=== PATIENT | female | born 1945 | race Caucasian/White ===

== ENCOUNTER 2016-12-03 11:03 | Day surgery (SDC) | payer MEDICARE ==
[2016-12-02 13:20] VITALS: BMI 24.0
--- OUTSIDE RECORDS SUMMARY | 2016-12-03 11:05 | XMS | Clinical Summary ---
:1945 Author Organization [facility] Address [address] [place] [address] Phone Care Team Providers Name Role Phone , Primary Care Provider Unavailable Allergies Not on File Current Medications Not on file Active Problems Not on file Social History Tobacco Use Types Packs/Day Years Used Date Never Assessed Sex Assigned at Date Recorded Not on file Last Filed Vital Signs Not on file Plan of Treatment Not on file Results Not on filefrom Last 3 Months
[2016-12-03] MEDS ORDERED: Glycopyrrolate 0.2 MG/ML 5 ML SYRINGE ONE (13:36)
[2016-12-03] MEDS ORDERED: Propofol 200 MG/20 ML VIAL ONE (13:36)
[2016-12-03] MEDS ORDERED: Lidocaine 1% PF 5 ML VIAL ONE (13:36)
--- NOTE | 2016-12-03 18:35 | OP ---
DATE OF SERVICE: 12/03/2016 SURGEON: Sabino Sol M.D. [employer] SURGEON: None. PROCEDURE: 1. EGD with polypectomy. 2. Colonoscopy with polypectomy and ablation of polyp. INDICATIONS: 1. Chronic gastroesophageal reflux disease. 2. History of gastric lymphoma. 3. History of colon polyp. MEDICATIONS: See anesthesia record. FINDINGS: After discussion of the risks, benefits and alternatives of the procedure, informed conse nt was obtained and witnessed. Pre-endoscopic cardiopulmonary examination was satisfactory. Timeou t was performed before sedation was achieved. Sedation was achieved with anesthesia assistance in [facility] endoscopy unit. A Pentax adult upper endoscope was placed into the oropharynx and passed through the cricopharyngeus under direct visualization. The esophageal mucosa appeared normal throughout w ith a normal-appearing Z-line. The endoscope was advanced into the stomach. Forward and retroflexe d views of the entire gastric mucosa were obtained. There was a small sliding hiatal hernia. Gastr ic mucosa otherwise appears completely normal. The endoscope was passed through the normal pylorus and into the first and second portions of the duodenum. In the duodenal bulb, inferiorly, there was a small polyp measuring only about 2 mm in diameter. This likely represents Nancie gland hyperpla martin, but the polyp was completely removed with hot snare and retrieved for pathology to rule out shaq nomatous tissue. The remainder of the duodenal mucosa appeared normal. The upper endoscope was the n completely withdrawn and the patient was repositioned. Digital rectal exam was performed, which was unremarkable. A Pentax adult colonoscope was inserted into the anus and passed forward to the cecum in the usual fashion. The cecal base was identified b y the appendiceal orifice as well as the ileocecal valve. The terminal ileum was not intubated. Th e colonoscope was then slowly withdrawn in a gradual and circumferential manner with careful examina tion of the entire colonic mucosa. The quality of the prep was good. There was some minor barotrau ma in the right colon visualized during the procedure, but no significant bleeding. In the cecum, t here were 2 small polyps, one of these measured 4-5 mm and was completely removed with hot snare and retrieved for pathology. The other was flat and measured only about 1 mm. This was completely abl ated with hot snare tip. The remainder of the colon appeared normal. There were a few tiny diverti cula in the sigmoid colon. Retroflexion in the rectum was otherwise normal. The colonoscope was th en completely withdrawn and the patient allowed to recover. The patient tolerated the procedure wel l. There were no immediate post-procedure complications. IMPRESSION: 1. Small hiatal hernia. 2. 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 3. Otherwise, normal esophagogastroduodenoscopy. 4. A 5 mm cecal polyp, completely removed with hot snare and retrieved for pathology. 5. A 1 mm cecal polyp, ablated. 6. Few sigmoid diverticula. 7. Otherwise, normal colonoscopy to the cecum. RECOMMENDATIONS: 1. Continue daily PPI. 2. Follow up pathology. 3. Repeat colonoscopy for surveillance in 5 years. 4. Return to the GI clinic as needed.
== END 2016-12-03 15:00 | disposition home or self-care (01) ==
LOC: SDC 11:03
PROVIDERS: ATTEND Internal Medicine
PROC: 0DBH8ZX Excision of Cecum, Via Natural or Artificial Opening Endoscopic, Diagnostic (ICD-10-PCS; principal; 2016-12-03)
PROC: 0DB98ZX Excision of Duodenum, Via Natural or Artificial Opening Endoscopic, Diagnostic (ICD-10-PCS; 2016-12-03)
DX: Z12.11 Encounter for screening for malignant neoplasm of colon (principal); K31.7 Polyp of stomach and duodenum; D12.0 Benign neoplasm of cecum; K21.9 Gastro-esophageal reflux disease without esophagitis; I48.91 Unspecified atrial fibrillation; I10 Essential (primary) hypertension; K44.9 Diaphragmatic hernia without obstruction or gangrene; K57.30 Diverticulosis of large intestine without perforation or abscess without bleeding; J44.9 Chronic obstructive pulmonary disease, unspecified; Z79.82 Long term (current) use of aspirin; Z79.899 Other long term (current) drug therapy; Z88.5 Allergy status to narcotic agent; Z91.048 Other nonmedicinal substance allergy status; Z96.1 Presence of intraocular lens; Z85.028 Personal history of other malignant neoplasm of stomach; Z85.118 Personal history of other malignant neoplasm of bronchus and lung; Z85.43 Personal history of malignant neoplasm of ovary; Z92.3 Personal history of irradiation; Z92.21 Personal history of antineoplastic chemotherapy; Z87.891 Personal history of nicotine dependence
CPT/HCPCS: 88305; J2001; J2704

== ENCOUNTER 2017-02-09 20:30 | Outpatient (CLI) | payer MEDICARE | END 2017-02-09 20:31 | disposition home or self-care (01) | LOC: SLEEPLAB 20:30 | PROVIDERS: ATTEND Internal Medicine | DX: G47.33 Obstructive sleep apnea (adult) (pediatric) (principal); R53.83 Other fatigue; R51 Headache; K21.9 Gastro-esophageal reflux disease without esophagitis; I11.9 Hypertensive heart disease without heart failure; R06.83 Snoring; G47.10 Hypersomnia, unspecified; R09.89 Other specified symptoms and signs involving the circulatory and respiratory systems | CPT/HCPCS: 95810 ==

== ENCOUNTER 2017-04-02 14:29 | Emergency (ER) | payer OTHER, MEDICARE ==
[2017-04-02 14:46] LABS: #Basophils 0.1 thou/uL (0.0-0.2); #Eosinphils 0.3 thou/uL (0.0-0.7); #Monocytes 1.1 thou/uL (0.11-0.59); #Neutrophils 6.9 thou/uL (1.40-6.50); %Eosinophils 2.7 % (0.0-10.0); %Lymphocytes 26.6 % (21.0-51.0); %Monocytes 9.4 % (0.0-10.0); %Neutrophils 60.4 % (42.0-75.0); Hemoglobin 15.1 g/dL (12.0-16.0); Mean Corpuscular HGB CONC 33.2 g/dL (32.0-36.0); Mean Corpuscular Hemoglobin 31.9 pg (27.0-31.0); Mean Corpuscular Volume 95.9 fl (81.0-99.0); Mean Platelet Volume 7.5 fL (7.4-10.4); Platelet Count 308 thou/uL (130-400); RBC Distribution Width 12.8 % (11.5-14.5); Red Blood Cell (RBC) Count 4.73 mill/uL (4.20-5.40); White Blood Cell (WBC) Count 11.4 thou/uL (4.8-10.8)
[2017-04-02] MEDS ORDERED: methylPREDNISolone Sod Succ/PF 125 MG/2 ML VIAL ONE (14:56)
[2017-04-02] MEDS ORDERED: Albuterol Sulfate 2.5 mg/0.5 ml Neb ONE (14:59)
[2017-04-02] MEDS ORDERED: Albuterol Sulfate 2.5 mg/3 ml Neb ONE (15:00)
[2017-04-02 15:06] LABS: ALT (SGPT) 13 U/L (8-55); AST (SGOT) 15 U/L (5-34); Albumin 3.9 g/dL (3.4-4.8); Alkaline Phosphatase 109 U/L (40-150); Anion Gap 16 mmol/L (10-20); BUN (Urea Nitrogen) 40 mg/dL (9.8-20.1); Bilirubin, Total 0.4 mg/dL (0.2-1.2); Calc. Creatinine Clearance 0 mL/min (70-130); Calcium 9.4 mg/dL (7.8-10.44); Carbon Dioxide 24 mmol/L (23-31); Chloride 101 mmol/L (98-107); Estimated GFR-MDRD 38; Globulin 3.1 g/dL (2.4-3.5); Glucose 103 mg/dL (83-110); Sodium 136 mmol/L (136-145)
[2017-04-02 15:11] LABS: Actual Bicarbonate (HCO3a) 26.4 mEq/L (22-26); Analyzer IN Cardio ER; Base Excess (BEa) 1.9 mEq/L (0 (+/-) 2.5); CO2 Tension 40.8 mmHg (35.0-45.0); Calcium, Ionized 1.2 mmol/L (1.12-1.30); Hematocrit-ABG 45.2 % (36.0-47.0); Hemoglobin (Hb) 14.3 g/dL (12.0-16.0); O2 Tension (PaO2) 92.8 mmHg (80.0-100.0); Puncture Site RRA; pH, Arterial 7.43 (7.35-7.45)
[2017-04-02 15:29] LABS: CKMB 1.2 ng/mL (0-6.6); Troponin I 0.015 ng/mL (< 0.028)
--- NOTE | 2017-04-02 15:36 | RAD ---
CHEST ONE VIEW 04/02/17 HISTORY: Dyspnea. COMPARISON: Chest one view 03/29/17 FINDINGS: Volume loss left lung. There is a layering left effusion. Extensive lingular and left lower lobe air space opacities present. Right lung relatively clear. There is a nodular density in right lung apex. IMPRESSION: 1. Volume loss left lung with small effusion and left basilar airspace opacity concerning for in fection. 2. Nodular density right lung apex. Followup CT of chest with contrast recommended. Code T Code LN POS: MARLI
[2017-04-02] MEDS ORDERED: Furosemide 40 MG/4 ML VIAL ONE (19:36)
== END 2017-04-02 21:35 | disposition home or self-care (01) ==
LOC: ERS 14:29
DX: J44.0 Chronic obstructive pulmonary disease with (acute) lower respiratory infection (principal); J18.9 Pneumonia, unspecified organism; J44.1 Chronic obstructive pulmonary disease with (acute) exacerbation; I11.0 Hypertensive heart disease with heart failure; I50.9 Heart failure, unspecified; I25.10 Atherosclerotic heart disease of native coronary artery without angina pectoris; I48.91 Unspecified atrial fibrillation; Z85.43 Personal history of malignant neoplasm of ovary; Z79.01 Long term (current) use of anticoagulants; Z79.82 Long term (current) use of aspirin; Z79.899 Other long term (current) drug therapy
CPT/HCPCS: 36415; 71045; 80053; 82553; 82805; 83880; 84484; 85025; 87040; 87070; 87205; 93005; 96374; 96375; J0696; J1940; J2930; J7611

== ENCOUNTER 2017-04-10 11:26 | Inpatient (IN) | payer MEDICARE, OTHER ==
[2017-04-10 12:58] LABS: ALT (SGPT) 15 U/L (8-55); AST (SGOT) 14 U/L (5-34); Albumin 3.9 g/dL (3.4-4.8); Alkaline Phosphatase 96 U/L (40-150); Anion Gap 13 mmol/L (10-20); BUN (Urea Nitrogen) 37 mg/dL (9.8-20.1); Bilirubin, Total 0.7 mg/dL (0.2-1.2); CK (CPK) 40 U/L (29-168); Calc. Creatinine Clearance 0 mL/min (70-130); Calcium 9.5 mg/dL (7.8-10.44); Carbon Dioxide 29 mmol/L (23-31); Chloride 101 mmol/L (98-107); Estimated GFR-MDRD 45; Globulin 2.6 g/dL (2.4-3.5); Glucose 107 mg/dL (83-110); Hemoglobin 14.8 g/dL (12.0-16.0); Lymphocytes 26 % (21-51); MDiff Complete? YES; Mean Corpuscular HGB CONC 33.3 g/dL (32.0-36.0); Mean Corpuscular Hemoglobin 31.7 pg (27.0-31.0); Mean Corpuscular Volume 95.4 fl (81.0-99.0); Mean Platelet Volume 7.2 fL (7.4-10.4); Metamyelocyte 1 % (0-0); Neutrophil 73 % (42-75); PLT Morphology Comment Appears Adequate; Platelet Count 327 thou/uL (130-400); Protein, Total 6.5 g/dL (6.0-8.3); RBC Morphology Normal; Red Blood Cell (RBC) Count 4.67 mill/uL (4.20-5.40); Sodium 139 mmol/L (136-145); White Blood Cell (WBC) Count 23.1 thou/uL (4.8-10.8)
[2017-04-10 13:02] LABS: CKMB 1.7 ng/mL (0-6.6); Troponin I Less than 0.010 ng/mL (< 0.028)
[2017-04-10] MEDS ORDERED: HYDROcodone/Acetaminophen 5/325 mg Tablet PO PRN ×2 (13:10→15:45)
[2017-04-10] MEDS ORDERED: Ondansetron ODT 4 MG TAB PO PRN (13:10)
[2017-04-10] MEDS ORDERED: Piperacillin/Tazobactam 4.5 GM in Sodium Chloride 0.9% 100 ML IVPB SCH (14:00)
[2017-04-10 14:01] LABS: Bilirubin Negative (Negative); Blood, Urine Negative (Negative); Clarity CLEAR (Clear); Glucose, Urine (Dipstick) Negative (Negative); Leukocyte Negative (Negative); Nitrite Negative (Negative); Protein, Urine (Dipstick) Negative (Neg-Trace); Specific Gravity, Urine 1.012 (1.002-1.036); Urobilinogen 0.2 mg/dL (0.2-1.0)
--- NOTE | 2017-04-10 14:05 | RAD ---
PORTABLE AP CHEST: Date: 04/10/17 HISTORY: Dyspnea. Patient has had flu and pneumonia. Shortness of breath. COMPARISON: 04/02/17. FINDINGS: There is generalized volume loss of the left hemithorax with shift of the mediastinal structures to t he left, similar to the prior exam. Left pleural effusion is also again seen. There is increased inte rstitial and patchy parenchymal opacities again seen at the left lung base, similar to the prior stud y. The right lung remains clear. Cardiac silhouette is obscured. Postsurgical changes left hilar camryn on are again noted. There is mild elevation of the left hemidiaphragm. No abnormal change. IMPRESSION: 1. Generalized volume loss left hemithorax with interstitial and patchy air space opacity at the lef t lung base which could be related to pneumonia, but follow-up to complete resolution is recommended. 2. Left pleural effusion. 3. Nodular density overlying the right lung apex is less well visualized on this exam. However, the minimal increased density overlies the anterior right second rib and is stable when compared to the p rior study as well as a study on 09/02/16. This could represent sclerotic lesion within a rib, but th is is difficult to further evaluate on this exam. POS: INDIRA
[2017-04-10] MEDS ORDERED: Albuterol Sulfate 2.5 mg/3 ml Neb NEB PRN (14:22)
[2017-04-10] MEDS ORDERED: Vancomycin HCl 1.25 GM in Sodium Chloride 0.9% 250 ML 250 ML IVPB SCH (14:30)
[2017-04-10] MEDS ORDERED: VANCOMYCIN/ZOSYN IVPB PRN (14:40)
[2017-04-10] MEDS ORDERED: Heparin 5,000 UNITS/ML VIAL SC SCH (15:00)
[2017-04-10] MEDS ORDERED: Ondansetron HCl/PF 4 MG/2 ML Vial IVP PRN ×2 (15:05→16:52)
[2017-04-10] MEDS ORDERED: Ondansetron ODT 4 MG TAB SL PRN (15:05)
[2017-04-10 15:14] VITALS: BMI 25.8
[2017-04-10] MEDS ORDERED: Sodium Chloride 0.9% 1,000 ML IV SCH (15:15)
[2017-04-10] MEDS ORDERED: Dextrose 5% in Water 1,000 ML IV PRN (16:50)
[2017-04-10] MEDS ORDERED: Dextrose 50% Abboject 50 ML SYRINGE SLOW IVP PRN (16:50)
[2017-04-10] MEDS ORDERED: HumaLOG 300 UNITS/3 ML VIAL SC PRN (16:50)
[2017-04-10] MEDS: Acetaminophen 325 MG TAB PO PRN ×2 (16:58→21:04)
[2017-04-10] MEDS: Sodium Chloride 0.9% 1,000 ML IV SCH (17:39)
[2017-04-10] MEDS: Vancomycin HCl 750 MG in Sodium Chloride 0.9% 250 ML 250 ML IVPB SCH (17:40)
--- NOTE | 2017-04-10 19:41 | HP ---
PRIMARY CARE PHYSICIAN: Dr. Jonathon Marquez. CHIEF COMPLAINT: Shortness of breath. HISTORY OF PRESENT ILLNESS: Ms. Luisa Gregg is a 71-year-old female with a past medical history of hypertension, bradycardia, COPD, and type 2 diabetes mellitus who presented to the emergency room with a 10-day history of fever, shortness of breath, cough productive of clear sputum, nausea, vomiting, lightheadedness, generalized malaise and fever and chills. She was seen by a PCP, who diagnosed her with left lobe pneumonia and started her on Levaquin and steroids. She took her medication for a week, but did not get any better. Due to her worsening symptoms, she presented to the emergency room. She denies chest pain, palpitations, PND, orthopnea, or lower extremity edema. She does not have any dysuria, urgency, hematuria, or any urinary symptoms. 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 PAST SURGICAL HISTORY: Ovarian rupture surgery, tonsillectomy, lobectomy of the lung. FAMILY HISTORY: Reviewed and not pertinent. SOCIAL HISTORY: She is a former smoker (quit in 1994). She does not drink alcohol or use illicit drugs. ALLERGIES: ADHESIVES and CODEINE. REVIEW OF SYSTEMS: Fever, chills, fatigue, weakness. HEENT: Negative. Neck: Negative. Respiratory: Per HPI. Cardiovascular: Negative. GI: Positive for nausea and vomiting, otherwise negative. : Occasional dysuria, frequency. Musculoskeletal: Negative. Skin: Denies rashes or skin changes. Neurologic: Negative. Hematology: Negative. Allergy/immunology: Negative. Psychiatric: Denies depressed mood, suicidal, or homicidal ideations. PHYSICAL EXAMINATION: CONSTITUTIONAL: Lethargic, lying in bed in moderate distress. HEENT: Normocephalic, atraumatic. EOMI, PERRLA. Dry mucous membranes. NECK: Supple, full range of movement. RESPIRATORY: Diminished breath sounds bilaterally with minimal wheezing. CARDIOVASCULAR: Regular rate and rhythm. S1, S2 only. No focal deficits. ABDOMEN: Nontender, nondistended. Bowel sounds positive. No organomegaly. MUSCULOSKELETAL: Moving all extremities spontaneously. SKIN: Warm, dry, well perfused. NEUROLOGIC: Alert and well oriented. No focal deficits. PSYCHIATRIC: Normal mood and affect. LABORATORY DATA: Chemistry significant for elevated BUN and creatinine 37 and 1.19. Lactic acid 1.3. Troponin less than 0.01. BNP 219. Hematology: WBC 23.1 (likely steroid induced), hemoglobin 14, platelets 327. Urine unremarkable. IMAGING: Chest x-ray showed generalized volume loss of the left hemithorax with interstitial patchy, airspace opacity at the left lung base, which could be related to pneumonia, left pleural effusion, nodular density overlying the right lung apex is less visualized in this exam; however, minimal increased density overlying the anterior right second rib and is stable when compared to prior study as well as study on 09/02/2016. ASSESSMENT/PLAN: 1. Left lower lobe pneumonia. Patient with saline of outpatient tests. She has been started on broad spectrum antibiotics here. Blood cultures have been obtained and will be followed up. Influenzae A and type B antigens were negative. She will also be gently hydrated, given bronchodilator therapy and oxygen supplementation. 2. Chronic obstructive pulmonary disease: as above. 3. Hypertension. Patient's blood pressure is controlled. We will monitor and gradually reintroduce home medications. 4. FLOR: pre-renal. 2/2 poor PO intake. Will hydrate and monitor. If not improving, will obtain retroperitoneal US to r/o obstructive uropathy. 5. Hypothyroidism: Continuie levothyroxine. MTDD
[2017-04-10] MEDS ORDERED: Piperacillin/Tazobactam 3.375 GM in Sodium Chloride 0.9% 100 ML IVPB SCH (20:00)
[2017-04-10] MEDS: Apixaban 5 MG TAB PO SCH (20:50)
[2017-04-10] MEDS: guaiFENesin ER 600 MG TAB PO SCH (20:51)
[2017-04-10] MEDS: Magnesium Oxide 250 MG TAB PO SCH (20:51)
[2017-04-10] MEDS: Metoprolol Tartrate 50 MG TAB PO SCH (20:52)
[2017-04-10] MEDS ORDERED: Famotidine 20 MG TAB PO SCH (21:00)
[2017-04-10] MEDS ORDERED: Lisinopril 10 MG TAB PO SCH (21:00)
[2017-04-10] MEDS ORDERED: Carvedilol 6.25 MG TAB PO SCH ×2 (21:00)
[2017-04-10] MEDS: Piperacillin/Tazobactam 3.375 GM in Sodium Chloride 0.9% 100 ML IVPB SCH (21:59)
[2017-04-11] MEDS: Piperacillin/Tazobactam 3.375 GM in Sodium Chloride 0.9% 100 ML IVPB SCH ×4 (02:40→21:02)
[2017-04-11] MEDS: Sodium Chloride 0.9% 1,000 ML IV SCH ×3 (02:40→21:02)
[2017-04-11 05:59] LABS: #Eosinphils 0.1 thou/uL (0.0-0.7); #Lymphocytes 1.2 thou/uL (1.20-3.40); #Neutrophils 12.4 thou/uL (1.40-6.50); %Eosinophils 1.1 % (0.0-10.0); %Lymphocytes 8.4 % (21.0-51.0); %Monocytes 0.1 % (0.0-10.0); %Neutrophils 90.4 % (42.0-75.0); Hemoglobin 12.3 g/dL (12.0-16.0); Mean Corpuscular HGB CONC 33.4 g/dL (32.0-36.0); Mean Corpuscular Hemoglobin 31.5 pg (27.0-31.0); Mean Corpuscular Volume 94.4 fl (81.0-99.0); Mean Platelet Volume 7.1 fL (7.4-10.4); Platelet Count 300 thou/uL (130-400); RBC Distribution Width 12.6 % (11.5-14.5); White Blood Cell (WBC) Count 13.7 thou/uL (4.8-10.8)
[2017-04-11] MEDS ORDERED: Levothyroxine Sodium 50 MCG TAB PO SCH (06:00)
[2017-04-11 06:20] LABS: Anion Gap 16 mmol/L (10-20); BUN (Urea Nitrogen) 34 mg/dL (9.8-20.1); Calc. Creatinine Clearance 43 mL/min (70-130); Calcium 8.9 mg/dL (7.8-10.44); Carbon Dioxide 25 mmol/L (23-31); Chloride 104 mmol/L (98-107); Estimated GFR-MDRD 41; Glucose 156 mg/dL (83-110); Potassium 4.8 mmol/L (3.5-5.1); Sodium 140 mmol/L (136-145)
[2017-04-11] MEDS: Aspirin 81 mg Enteric Coated Tablet PO SCH (08:37)
[2017-04-11] MEDS: Metoprolol Tartrate 25 MG TAB PO SCH (08:37)
[2017-04-11] MEDS: guaiFENesin ER 600 MG TAB PO SCH ×2 (08:37→20:08)
[2017-04-11] MEDS: Apixaban 5 MG TAB PO SCH ×2 (08:37→20:07)
[2017-04-11] MEDS ORDERED: VIT C PO SCH (09:00)
[2017-04-11] MEDS ORDERED: MSM PO SCH (09:00)
[2017-04-11] MEDS ORDERED: Multivitamin W/ Minerals 1 TAB PO SCH (09:00)
[2017-04-11] MEDS ORDERED: Carvedilol 3.125 MG TAB PO SCH ×2 (09:00)
[2017-04-11] MEDS ORDERED: MAGNESIUM PO SCH (09:00)
[2017-04-11] MEDS ORDERED: GLUC SU PO SCH (09:00)
[2017-04-11] MEDS ORDERED: Alogliptin 25 MG TAB PO SCH (09:00)
--- NOTE | 2017-04-11 10:21 | PDOC.PN ---
- Subjective Encounter Start Date: 04/11/17 Encounter Start Time: 10:26 Subjective: No complaints. Reports feeling much better today. -: Off O2 -: No acute events overnight. - Objective MAR Reviewed: Yes Vital Signs & Weight: Vital Signs (12 hours) Temp Pulse Resp BP Pulse Ox 04/11/17 08:44 97.6 F 99 20 134/70 95 04/11/17 08:00 98 F 84 22 H 125/62 95 04/11/17 07:04 98 F 84 22 H 125/62 95 04/11/17 01:09 68 16 95 04/11/17 00:19 97.9 F 68 18 111/58 L 95 Weight Weight 150 lb 6 oz I&O: 04/10/17 04/11/17 04/12/17 06:59 06:59 06:59 Intake Total 920 Balance 920 Result Diagrams: 04/11/17 05:37 04/11/17 05:37 Additional Labs: Accuchecks 04/10/17 04/10/17 20:01 17:40 POC Glucose 117 H 90 Phys Exam - Physical Examination Constitutional: NAD HEENT: PERRLA, moist MMs, sclera anicteric Neck: no JVD, supple, full ROM Respiratory: no wheezing, no rales Coarse breath sounds b/l Cardiovascular: RRR, no significant murmur, no rub Gastrointestinal: soft, non-tender, no distention, positive bowel sounds Musculoskeletal: no edema, pulses present Neurological: non-focal, moves all 4 limbs Psychiatric: normal affect, A&O x 3 Skin: no rash, normal turgor Dx/Plan (1) Left lower lobe pneumonia Code(s): J18.1 - LOBAR PNEUMONIA, UNSPECIFIED ORGANISM Status: Acute Qualifiers: Pneumonia type: due to unspecified organism Qualified Code(s): J18.1 - Lobar pneumonia, unspecified organism Plan: Continue IV antibiotics pending sensitivities. Comment: Improving, leucocytosis resolving, blood Cx grew gram + nils in one bottle. COntinue broad spectrum abx. f/u culture sensitivities, neb treatments. Will switch to PO steroids. (2) COPD (chronic obstructive pulmonary disease) Status: Acute Qualifiers: COPD type: unspecified COPD Qualified Code(s): J44.9 - Chronic obstructive pulmonary disease, unspecified Plan: As above. (3) HTN (hypertension) Code(s): I10 - ESSENTIAL (PRIMARY) HYPERTENSION Status: Acute Qualifiers: Hypertension type: essential hypertension Qualified Code(s): I10 - Essential (primary) hypertension Plan: Controlled. Continue metoprolol. (4) Hypothyroidism Code(s): E03.9 - HYPOTHYROIDISM, UNSPECIFIED Status: Acute Qualifiers: Hypothyroidism type: unspecified Qualified Code(s): E03.9 - Hypothyroidism , unspecified Plan: Continue Levothyroxine. (5) FLOR (acute kidney injury) Code(s): N17.9 - ACUTE KIDNEY FAILURE, UNSPECIFIED Status: Acute Plan: Lisinopril held. Started parenteral hydration. Likely pre-renal 2/2 poor PO intake. - Plan cont current plan of care, continue antibiotics, respiratory therapy * .
[2017-04-11] MEDS: Vancomycin HCl 750 MG in Sodium Chloride 0.9% 250 ML 250 ML IVPB SCH (16:03)
[2017-04-11] MEDS: Magnesium Oxide 250 MG TAB PO SCH (20:08)
[2017-04-11] MEDS: Metoprolol Tartrate 50 MG TAB PO SCH (20:09)
[2017-04-11] MEDS ORDERED: Ezetimibe 10 MG TAB PO SCH (21:00)
[2017-04-12] MEDS: Piperacillin/Tazobactam 3.375 GM in Sodium Chloride 0.9% 100 ML IVPB SCH ×4 (03:08→21:06)
[2017-04-12 05:59] LABS: Anion Gap 12 mmol/L (10-20); BUN (Urea Nitrogen) 31 mg/dL (9.8-20.1); Calc. Creatinine Clearance 51 mL/min (70-130); Calcium 9.5 mg/dL (7.8-10.44); Carbon Dioxide 22 mmol/L (23-31); Chloride 109 mmol/L (98-107); Estimated GFR-MDRD 50; Glucose 128 mg/dL (83-110); Potassium 4.4 mmol/L (3.5-5.1); Sodium 139 mmol/L (136-145)
[2017-04-12 06:14] LABS: Band 3 % (5-11); Hemoglobin 10.9 g/dL (12.0-16.0); Lymphocytes 11 % (21-51); MDiff Complete? YES; Mean Corpuscular HGB CONC 32.5 g/dL (32.0-36.0); Mean Corpuscular Hemoglobin 30.9 pg (27.0-31.0); Mean Corpuscular Volume 95.1 fl (81.0-99.0); Mean Platelet Volume 7.4 fL (7.4-10.4); Monocytes 1 % (0-10); Neutrophil 85 % (42-75); PLT Morphology Comment Appears Adequate; Platelet Count 270 thou/uL (130-400); RBC Distribution Width 12.9 % (11.5-14.5); Red Blood Cell (RBC) Count 3.54 mill/uL (4.20-5.40); White Blood Cell (WBC) Count 20.3 thou/uL (4.8-10.8)
[2017-04-12] MEDS: predniSONE 20 MG TAB PO SCH (08:38)
[2017-04-12] MEDS: Aspirin 81 mg Enteric Coated Tablet PO SCH (08:39)
[2017-04-12] MEDS: Metoprolol Tartrate 25 MG TAB PO SCH (08:41)
[2017-04-12] MEDS: guaiFENesin ER 600 MG TAB PO SCH ×2 (08:41→21:06)
[2017-04-12] MEDS: Apixaban 5 MG TAB PO SCH ×2 (08:43→21:05)
[2017-04-12] MEDS: Sodium Chloride 0.9% 1,000 ML IV SCH ×2 (08:45→17:36)
--- NOTE | 2017-04-12 09:07 | PDOC.PN ---
- Subjective Encounter Start Date: 04/12/17 Encounter Start Time: 07:30 -: old records requested/rev Patient seen and examined. No new complaints. No overnight events - Objective MAR Reviewed: Yes Vital Signs & Weight: Vital Signs (12 hours) Temp Pulse Resp BP Pulse Ox 04/12/17 07:36 98.0 F 93 18 139/85 96 04/12/17 07:29 81 16 98 04/12/17 04:00 98.2 F 95 18 135/67 93 L 04/12/17 00:00 97.9 F 91 18 114/53 L 94 L 04/11/17 23:43 94 20 97 Weight Weight 150 lb 6 oz I&O: 04/11/17 04/12/17 04/13/17 06:59 06:59 06:59 Intake Total 920 3411 Balance 920 3411 Result Diagrams: 04/12/17 04:39 04/12/17 04:39 Phys Exam - Physical Examination Constitutional: NAD HEENT: PERRLA, moist MMs, sclera anicteric Neck: no JVD, supple Respiratory: no wheezing, no rhonchi left base coarse sound Cardiovascular: RRR, no significant murmur, no rub Gastrointestinal: soft, non-tender, no distention, positive bowel sounds Musculoskeletal: no edema, pulses present Neurological: non-focal, normal sensation, moves all 4 limbs Psychiatric: normal affect, A&O x 3 Skin: no rash, normal turgor Dx/Plan (1) Left lower lobe pneumonia Code(s): J18.1 - LOBAR PNEUMONIA, UNSPECIFIED ORGANISM Status: Acute Qualifiers: Pneumonia type: due to unspecified organism Qualified Code(s): J18.1 - Lobar pneumonia, unspecified organism Comment: Improving, leucocytosis resolving, blood Cx grew gram + nils in one bottle. COntinue broad spectrum abx. f/u culture sensitivities, neb treatments. Will switch to PO steroids. (2) FLOR (acute kidney injury) Code(s): N17.9 - ACUTE KIDNEY FAILURE, UNSPECIFIED Status: Acute (3) COPD (chronic obstructive pulmonary disease) Status: Chronic Qualifiers: COPD type: unspecified COPD Qualified Code(s): J44.9 - Chronic obstructive pulmonary disease, unspecified (4) HTN (hypertension) Code(s): I10 - ESSENTIAL (PRIMARY) HYPERTENSION Status: Chronic Qualifiers: Hypertension type: essential hypertension Qualified Code(s): I10 - Essential (primary) hypertension (5) Hypothyroidism Code(s): E03.9 - HYPOTHYROIDISM, UNSPECIFIED Status: Chronic Qualifiers: Hypothyroidism type: unspecified Qualified Code(s): E03.9 - Hypothyroidism , unspecified - Plan cont current plan of care, continue antibiotics * continue IV antibiotics, vancomycin and zosyn * repeat labs tomorrow * medication reviewed as below * symptomatic treatment * doing well clinically. Review of Systems - Review of Systems ENT: negative: Ear Pain, Ear Discharge, Nose Pain, Nose Discharge, Nose Congestion, Mouth Pain, Mouth Swelling, Throat Pain, Throat Swelling, Other Respiratory: negative: Cough, Dry, Shortness of Breath, Hemoptysis, SOB with Excertion, Pleuritic Pain, Sputum, Wheezing Cardiovascular: negative: chest pain, palpitations, orthopnea, paroxysmal nocturnal dyspnea, edema, light headedness, other Gastrointestinal: negative: Nausea, Vomiting, Abdominal Pain, Diarrhea, Constipation, Melena, Hematochezia, Other Genitourinary: negative: Dysuria, Frequency, Incontinence, Hematuria, Retention , Other Musculoskeletal: negative: Neck Pain, Shoulder Pain, Arm Pain, Back Pain, Hand Pain, Leg Pain, Foot Pain, Other Skin: negative: Rash, Lesions, River, Bruising, Other - Medications/Allergies Allergies/Adverse Reactions: Allergies Allergy/AdvReac Type Severity Reaction Status Date / Time adhesive Allergy blisters, Verified 12/02/16 13:21 pulls skin off codeine Allergy Verified 04/10/17 15:09 Medications: Current Medications Acetaminophen (Tylenol) 650 mg PO Q4H PRN PRN Reason: Headache/Fever or Pain Last Admin: 04/10/17 21:04 Dose: 650 mg Hydrocodone Bitart/Acetaminophen ([place] 5/325) 1 tab PO Q4H PRN PRN Reason: Moderate Pain (4-6) Albuterol Sulfate (Ventolin) 2.5 mg NEB [id number] PRN PRN Reason: SOB &/or Wheezing Albuterol/Ipratropium (Duoneb) 3 ml NEB [id number] [facility] Last Admin: 04/12/17 07:29 Dose: 3 ml Apixaban (Eliquis) 2.5 mg PO BID [facility] Last Admin: 02/12/18 08:43 Dose: 2.5 mg Aspirin (Ecotrin) 81 mg PO DAILY COUNT INCLUDES [facility] Last Admin: 04/12/17 08:39 Dose: 81 mg Glucagon (Glucagon) 1 mg IM PRN PRN PRN Reason: Hypoglycemia Guaifenesin (Mucinex) 600 mg PO Q12HR COUNT INCLUDES [facility] Last Admin: 04/12/17 08:41 Dose: 600 mg Piperacillin Sod/Tazobactam (Sod 3.375 gm/ Sodium Chloride) 100 mls @ 200 mls/ hr IVPB 0400,1000,1600,2200 COUNT INCLUDES THE [facility] Last Admin: 04/12/17 03:08 Dose: 100 mls Vancomycin HCl 750 mg/ Sodium (Chloride) 250 mls @ 250 mls/hr IVPB 1600 COUNT INCLUDES THE [facility] Last Admin: 04/11/17 16:03 Dose: 250 mls Sodium Chloride (Normal Saline 0.9%) 1,000 mls @ 100 mls/hr IV .Q10H COUNT INCLUDES THE [facility] Last Admin: 04/12/17 08:45 Dose: Not Given Magnesium Oxide (Magnesium Oxide) 500 mg PO QPM COUNT INCLUDES THE [facility] Last Admin: 04/11/17 20:08 Dose: 500 mg Metoprolol Tartrate (Lopressor) 25 mg PO QAM COUNT INCLUDES THE [facility] Last Admin: 04/12/17 08:41 Dose: 25 mg Metoprolol Tartrate (Lopressor) 50 mg PO QPM COUNT INCLUDES THE [facility] Last Admin: 04/11/17 20:09 Dose: 50 mg Miscellaneous Medication (Pharmacy To Dose) 1 each IVPB PRN PRN PRN Reason: Pharmacy to dose Ondansetron HCl (Zofran Odt) 4 mg PO Q6H PRN PRN Reason: Nausea/Vomiting Ondansetron HCl (Zofran) 4 mg IVP Q6H PRN PRN Reason: Nausea/Vomiting Pantoprazole Sodium (Protonix) 40 mg PO 0900 COUNT INCLUDES THE [facility] Last Admin: 04/11/17 10:34 Dose: 40 mg Prednisone (Prednisone) 40 mg PO QA-[facility] Last Admin: 04/12/17 08:38 Dose: 40 mg
[2017-04-12] MEDS ORDERED: Vancomycin HCl 1.5 GM in Sodium Chloride 0.9% 250 ML 300 ML IVPB SCH (16:00)
[2017-04-12] MEDS: Magnesium Oxide 250 MG TAB PO SCH (21:06)
[2017-04-12] MEDS: Metoprolol Tartrate 50 MG TAB PO SCH (21:06)
[2017-04-12] MEDS: Acetaminophen 325 MG TAB PO PRN (21:07)
[2017-04-13] MEDS: Sodium Chloride 0.9% 1,000 ML IV SCH (04:18)
[2017-04-13] MEDS: Piperacillin/Tazobactam 3.375 GM in Sodium Chloride 0.9% 100 ML IVPB SCH (04:18)
[2017-04-13 05:36] LABS: #Eosinphils 0.2 thou/uL (0.0-0.7); #Lymphocytes 2.8 thou/uL (1.20-3.40); %Basophils 0.1 % (0.0-1.0); %Eosinophils 1.4 % (0.0-10.0); %Lymphocytes 16.2 % (21.0-51.0); %Monocytes 5.7 % (0.0-10.0); %Neutrophils 76.7 % (42.0-75.0); Hemoglobin 10.6 g/dL (12.0-16.0); Mean Corpuscular HGB CONC 33.5 g/dL (32.0-36.0); Mean Corpuscular Hemoglobin 32.2 pg (27.0-31.0); Mean Platelet Volume 7.2 fL (7.4-10.4); Platelet Count 248 thou/uL (130-400); RBC Distribution Width 13.1 % (11.5-14.5)
[2017-04-13 05:45] LABS: Anion Gap 10 mmol/L (10-20); BUN (Urea Nitrogen) 28 mg/dL (9.8-20.1); Calc. Creatinine Clearance 51 mL/min (70-130); Calcium 8.9 mg/dL (7.8-10.44); Carbon Dioxide 26 mmol/L (23-31); Chloride 110 mmol/L (98-107); Estimated GFR-MDRD 50; Glucose 90 mg/dL (83-110); Potassium 4.1 mmol/L (3.5-5.1); Sodium 142 mmol/L (136-145)
[2017-04-13] MEDS: Apixaban 5 MG TAB PO SCH ×2 (08:33→21:41)
[2017-04-13] MEDS: predniSONE 20 MG TAB PO SCH ×2 (08:40→09:20)
[2017-04-13] MEDS: Aspirin 81 mg Enteric Coated Tablet PO SCH (08:43)
[2017-04-13] MEDS: guaiFENesin ER 600 MG TAB PO SCH ×2 (08:43→20:11)
[2017-04-13] MEDS: Metoprolol Tartrate 25 MG TAB PO SCH (08:43)
[2017-04-13] MEDS ORDERED: Doxycycline 100 MG CAP PO SCH (09:30)
--- NOTE | 2017-04-13 11:25 | PDOC.PN ---
- Subjective Encounter Start Date: 04/13/17 Encounter Start Time: 09:10 pt has lot of diarrhoea, feels weak, no fever, no cough Patient seen and examined. No overnight events - Objective MAR Reviewed: Yes Vital Signs & Weight: Vital Signs (12 hours) Temp Pulse Resp BP BP Pulse Ox 04/13/17 08:00 97.7 F 101 H 20 95 04/13/17 07:15 97.7 F 101 H 20 177/79 H 95 04/13/17 04:00 97.8 F 70 20 146/68 H 97 04/13/17 03:14 96 04/13/17 00:33 68 12 04/13/17 00:00 97.5 F L 68 20 133/72 94 L Weight Weight 150 lb 6 oz I&O: 04/12/17 04/13/17 04/14/17 06:59 06:59 06:59 Intake Total 3411 1620 Balance 3411 1620 Result Diagrams: 04/13/17 05:08 04/13/17 05:08 Phys Exam - Physical Examination Constitutional: NAD HEENT: PERRLA, moist MMs, sclera anicteric Neck: no JVD, supple Respiratory: no wheezing, no rhonchi left lower lobe rales Cardiovascular: RRR, no significant murmur, no rub Gastrointestinal: soft, non-tender, no distention, positive bowel sounds Musculoskeletal: no edema, pulses present Neurological: non-focal, normal sensation, moves all 4 limbs Psychiatric: normal affect, A&O x 3 Skin: no rash, normal turgor Dx/Plan (1) Left lower lobe pneumonia Code(s): J18.1 - LOBAR PNEUMONIA, UNSPECIFIED ORGANISM Status: Acute Qualifiers: Pneumonia type: due to unspecified organism Qualified Code(s): J18.1 - Lobar pneumonia, unspecified organism Comment: Improving, leucocytosis resolving, blood Cx grew gram + nils in one bottle. COntinue broad spectrum abx. f/u culture sensitivities, neb treatments. Will switch to PO steroids. (2) FLOR (acute kidney injury) Code(s): N17.9 - ACUTE KIDNEY FAILURE, UNSPECIFIED Status: Acute (3) COPD (chronic obstructive pulmonary disease) Status: Chronic Qualifiers: COPD type: unspecified COPD Qualified Code(s): J44.9 - Chronic obstructive pulmonary disease, unspecified (4) HTN (hypertension) Code(s): I10 - ESSENTIAL (PRIMARY) HYPERTENSION Status: Chronic Qualifiers: Hypertension type: essential hypertension Qualified Code(s): I10 - Essential (primary) hypertension (5) Hypothyroidism Code(s): E03.9 - HYPOTHYROIDISM, UNSPECIFIED Status: Chronic Qualifiers: Hypothyroidism type: unspecified Qualified Code(s): E03.9 - Hypothyroidism , unspecified (6) Acute diarrhea Code(s): R19.7 - DIARRHEA, UNSPECIFIED Status: Acute - Plan cont current plan of care, continue antibiotics * most likely diarrhoea related with iv antibiotics, will rule out c-diff * if c-diff ruled out, then will control diarrhoea with antidiarrhoeal * medication reviewed as below * symptomatic treatment * change to levaquin and doxycycline PO * add florastor Review of Systems - Review of Systems Constitutional: weakness. negative: fever, chills, sweats, malaise, other ENT: negative: Ear Pain, Ear Discharge, Nose Pain, Nose Discharge, Nose Congestion, Mouth Pain, Mouth Swelling, Throat Pain, Throat Swelling, Other Respiratory: negative: Cough, Dry, Shortness of Breath, Hemoptysis, SOB with Excertion, Pleuritic Pain, Sputum, Wheezing Cardiovascular: negative: chest pain, palpitations, orthopnea, paroxysmal nocturnal dyspnea, edema, light headedness, other Gastrointestinal: Diarrhea. negative: Nausea, Vomiting, Abdominal Pain, Constipation, Melena, Hematochezia, Other Genitourinary: negative: Dysuria, Frequency, Incontinence, Hematuria, Retention , Other Musculoskeletal: negative: Neck Pain, Shoulder Pain, Arm Pain, Back Pain, Hand Pain, Leg Pain, Foot Pain, Other Skin: negative: Rash, Lesions, River, Bruising, Other - Medications/Allergies Allergies/Adverse Reactions: Allergies Allergy/AdvReac Type Severity Reaction Status Date / Time adhesive Allergy blisters, Verified 12/02/16 13:21 pulls skin off codeine Allergy Verified 04/10/17 15:09 Medications: Current Medications Acetaminophen (Tylenol) 650 mg PO Q4H PRN PRN Reason: Headache/Fever or Pain Last Admin: 04/12/17 21:07 Dose: 650 mg Hydrocodone Bitart/Acetaminophen ([place] 5/325) 1 tab PO Q4H PRN PRN Reason: Moderate Pain (4-6) Albuterol Sulfate (Ventolin) 2.5 mg NEB [id number] PRN PRN Reason: SOB &/or Wheezing Albuterol/Ipratropium (Duoneb) 3 ml NEB Q4OC-UG [facility] Last Admin: 04/13/17 08:25 Dose: Not Given Apixaban (Eliquis) 2.5 mg PO BID [facility] Last Admin: 04/13/17 08:33 Dose: 2.5 mg Aspirin (Ecotrin) 81 mg PO DAILY [facility] Last Admin: 04/13/17 08:43 Dose: 81 mg Doxycycline Hyclate (Vibramycin) 100 mg PO BID [facility] Doxycycline Hyclate (Vibramycin) 100 mg PO 0930 [facility] Stop: 04/13/17 11:30 Last Admin: 04/13/17 10:33 Dose: 100 mg Glucagon (Glucagon) 1 mg IM PRN PRN PRN Reason: Hypoglycemia Guaifenesin (Mucinex) 600 mg PO Q12HR [facility] Last Admin: 04/13/17 08:43 Dose: 600 mg Levofloxacin (Levaquin) 500 mg PO 0600 [facility] Magnesium Oxide (Magnesium Oxide) 500 mg PO QPM [facility] Last Admin: 04/12/17 21:06 Dose: Not Given Metoprolol Tartrate (Lopressor) 25 mg PO QAM [facility] Last Admin: 04/13/17 08:43 Dose: Not Given Metoprolol Tartrate (Lopressor) 50 mg PO QPM [facility] Last Admin: 04/12/17 21:06 Dose: 50 mg Mometasone Furoate/Formoterol Fumar (Dulera 200 Mcg/5 Mcg Inhaler) 2 puff INH BID-RT [facility] Ondansetron HCl (Zofran Odt) 4 mg PO Q6H PRN PRN Reason: Nausea/Vomiting Ondansetron HCl (Zofran) 4 mg IVP Q6H PRN PRN Reason: Nausea/Vomiting Pantoprazole Sodium (Protonix) 40 mg PO 0900 [facility] Last Admin: 04/13/17 10:33 Dose: 40 mg Prednisone (Prednisone) 20 mg PO QAM-WM [facility] Last Admin: 04/13/17 08:40 Dose: 20 mg Saccharomyces Boulardii (Florastor) 250 mg PO BID [facility]
[2017-04-13] MEDS ORDERED: Loperamide HCl 2 MG CAP PO PRN (17:02)
[2017-04-13] MEDS: Saccharomyces boulardii 250 MG CAP PO SCH (20:11)
[2017-04-13] MEDS: Magnesium Oxide 250 MG TAB PO SCH (20:11)
[2017-04-13] MEDS: Metoprolol Tartrate 50 MG TAB PO SCH (20:11)
[2017-04-13] MEDS: Doxycycline 100 MG CAP PO SCH (20:11)
[2017-04-13] MEDS: Mometasone/Formoterol 120 PUFF INHALER INH SCH (20:40)
[2017-04-14 05:01] LABS: #Basophils 0.1 thou/uL (0.0-0.2); #Eosinphils 0.4 thou/uL (0.0-0.7); #Lymphocytes 3.7 thou/uL (1.20-3.40); #Neutrophils 8.7 thou/uL (1.40-6.50); %Basophils 0.6 % (0.0-1.0); %Eosinophils 2.9 % (0.0-10.0); %Lymphocytes 26.6 % (21.0-51.0); %Neutrophils 62.9 % (42.0-75.0); Hemoglobin 11.7 g/dL (12.0-16.0); Mean Corpuscular HGB CONC 33.5 g/dL (32.0-36.0); Mean Corpuscular Volume 95.5 fl (81.0-99.0); Mean Platelet Volume 7.2 fL (7.4-10.4); Platelet Count 272 thou/uL (130-400); RBC Distribution Width 13.3 % (11.5-14.5); Red Blood Cell (RBC) Count 3.66 mill/uL (4.20-5.40); White Blood Cell (WBC) Count 13.8 thou/uL (4.8-10.8)
[2017-04-14 05:20] LABS: Anion Gap 13 mmol/L (10-20); BUN (Urea Nitrogen) 21 mg/dL (9.8-20.1); Calc. Creatinine Clearance 55 mL/min (70-130); Calcium 9.1 mg/dL (7.8-10.44); Carbon Dioxide 24 mmol/L (23-31); Chloride 109 mmol/L (98-107); Estimated GFR-MDRD 55; Glucose 109 mg/dL (83-110); Potassium 3.8 mmol/L (3.5-5.1); Sodium 142 mmol/L (136-145)
[2017-04-14] MEDS: Mometasone/Formoterol 120 PUFF INHALER INH SCH (07:46)
[2017-04-14] MEDS: Doxycycline 100 MG CAP PO SCH (08:58)
[2017-04-14] MEDS: Saccharomyces boulardii 250 MG CAP PO SCH (08:58)
[2017-04-14] MEDS: Metoprolol Tartrate 25 MG TAB PO SCH (08:59)
[2017-04-14] MEDS: Apixaban 5 MG TAB PO SCH (08:59)
[2017-04-14] MEDS: guaiFENesin ER 600 MG TAB PO SCH (08:59)
[2017-04-14] MEDS: predniSONE 20 MG TAB PO SCH (08:59)
[2017-04-14] MEDS: Aspirin 81 mg Enteric Coated Tablet PO SCH (09:04)
--- NOTE | 2017-04-14 11:15 | PDOC.PN ---
- Subjective Encounter Start Date: 04/14/17 Encounter Start Time: 09:00 Patient seen and examined. No new complaints. No overnight events - Objective MAR Reviewed: Yes Vital Signs & Weight: Vital Signs (12 hours) Temp Pulse Resp BP BP Pulse Ox 04/14/17 08:00 97.8 F 88 20 95 04/14/17 07:49 95 04/14/17 07:46 88 20 95 04/14/17 07:30 97.8 F 87 18 175/92 H 95 04/14/17 04:41 95 04/14/17 04:40 97.9 F 96 18 145/68 H 94 L 04/14/17 00:00 97.9 F 96 16 129/72 95 Weight Weight 150 lb 6 oz I&O: 04/13/17 04/14/17 04/15/17 06:59 06:59 06:59 Intake Total 1620 500 Balance 1620 500 Result Diagrams: 04/14/17 04:12 04/14/17 04:12 Phys Exam - Physical Examination Constitutional: NAD HEENT: PERRLA, moist MMs, sclera anicteric Neck: no JVD, supple Respiratory: no wheezing, no rales, no rhonchi Cardiovascular: RRR, no significant murmur, no rub Gastrointestinal: soft, non-tender, no distention, positive bowel sounds Musculoskeletal: no edema, pulses present Neurological: non-focal, normal sensation, moves all 4 limbs Psychiatric: normal affect, A&O x 3 Skin: no rash, normal turgor Dx/Plan (1) Left lower lobe pneumonia Code(s): J18.1 - LOBAR PNEUMONIA, UNSPECIFIED ORGANISM Status: Acute Qualifiers: Pneumonia type: due to unspecified organism Qualified Code(s): J18.1 - Lobar pneumonia, unspecified organism Comment: Improving, leucocytosis resolving, blood Cx grew gram + nils in one bottle. COntinue broad spectrum abx. f/u culture sensitivities, neb treatments. Will switch to PO steroids. (2) FLOR (acute kidney injury) Code(s): N17.9 - ACUTE KIDNEY FAILURE, UNSPECIFIED Status: Acute (3) COPD (chronic obstructive pulmonary disease) Status: Chronic Qualifiers: COPD type: unspecified COPD Qualified Code(s): J44.9 - Chronic obstructive pulmonary disease, unspecified (4) HTN (hypertension) Code(s): I10 - ESSENTIAL (PRIMARY) HYPERTENSION Status: Chronic Qualifiers: Hypertension type: essential hypertension Qualified Code(s): I10 - Essential (primary) hypertension (5) Hypothyroidism Code(s): E03.9 - HYPOTHYROIDISM, UNSPECIFIED Status: Chronic Qualifiers: Hypothyroidism type: unspecified Qualified Code(s): E03.9 - Hypothyroidism , unspecified (6) Acute diarrhea Code(s): R19.7 - DIARRHEA, UNSPECIFIED Status: Acute - Plan cont current plan of care, continue antibiotics * medication reviewed as below * symptomatic treatment * stable for discharge * see discharge mumtaz. Review of Systems - Review of Systems ENT: negative: Ear Pain, Ear Discharge, Nose Pain, Nose Discharge, Nose Congestion, Mouth Pain, Mouth Swelling, Throat Pain, Throat Swelling, Other Respiratory: negative: Cough, Dry, Shortness of Breath, Hemoptysis, SOB with Excertion, Pleuritic Pain, Sputum, Wheezing Cardiovascular: negative: chest pain, palpitations, orthopnea, paroxysmal nocturnal dyspnea, edema, light headedness, other Gastrointestinal: negative: Nausea, Vomiting, Abdominal Pain, Diarrhea, Constipation, Melena, Hematochezia, Other Genitourinary: negative: Dysuria, Frequency, Incontinence, Hematuria, Retention , Other Musculoskeletal: negative: Neck Pain, Shoulder Pain, Arm Pain, Back Pain, Hand Pain, Leg Pain, Foot Pain, Other Skin: negative: Rash, Lesions, River, Bruising, Other - Medications/Allergies Allergies/Adverse Reactions: Allergies Allergy/AdvReac Type Severity Reaction Status Date / Time adhesive Allergy blisters, Verified 12/02/16 13:21 pulls skin off codeine Allergy Verified 04/10/17 15:09 Medications: Current Medications Acetaminophen (Tylenol) 650 mg PO Q4H PRN PRN Reason: Headache/Fever or Pain Last Admin: 04/12/17 21:07 Dose: 650 mg Hydrocodone Bitart/Acetaminophen (Ganado 5/325) 1 tab PO Q4H PRN PRN Reason: Moderate Pain (4-6) Albuterol Sulfate (Ventolin) 2.5 mg NEB [id number] PRN PRN Reason: SOB &/or Wheezing Albuterol/Ipratropium (Duoneb) 3 ml NEB [id number] LALA Last Admin: 04/14/17 07:46 Dose: 3 ml Apixaban (Eliquis) 2.5 mg PO BID [facility] Last Admin: 04/14/17 08:59 Dose: 2.5 mg Aspirin (Ecotrin) 81 mg PO DAILY [facility] Last Admin: 04/14/17 09:04 Dose: 81 mg Doxycycline Hyclate (Vibramycin) 100 mg PO BID [facility] Last Admin: 04/14/17 08:58 Dose: 100 mg Glucagon (Glucagon) 1 mg IM PRN PRN PRN Reason: Hypoglycemia Guaifenesin (Mucinex) 600 mg PO Q12HR [facility] Last Admin: 04/14/17 08:59 Dose: 600 mg Levofloxacin (Levaquin) 500 mg PO 0600 [facility] Last Admin: 04/14/17 05:19 Dose: 500 mg Loperamide HCl (Imodium) 2 mg PO Q6H PRN PRN Reason: Diarrhea/Loose Stools Last Admin: 04/14/17 08:58 Dose: 2 mg Magnesium Oxide (Magnesium Oxide) 500 mg PO QPM [facility] Last Admin: 04/13/17 20:11 Dose: Not Given Metoprolol Tartrate (Lopressor) 25 mg PO QAM [facility] Last Admin: 04/14/17 08:59 Dose: 25 mg Metoprolol Tartrate (Lopressor) 50 mg PO QPM [facility] Last Admin: 04/13/17 20:11 Dose: 50 mg Mometasone Furoate/Formoterol Fumar (Dulera 200 Mcg/5 Mcg Inhaler) 2 puff INH BID-RT [facility] Last Admin: 04/14/17 07:46 Dose: 2 puff Ondansetron HCl (Zofran Odt) 4 mg PO Q6H PRN PRN Reason: Nausea/Vomiting Ondansetron HCl (Zofran) 4 mg IVP Q6H PRN PRN Reason: Nausea/Vomiting Pantoprazole Sodium (Protonix) 40 mg PO 0900 [facility] Last Admin: 04/13/17 10:33 Dose: 40 mg Prednisone (Prednisone) 20 mg PO QAM-[facility] Last Admin: 04/14/17 08:59 Dose: 20 mg Saccharomyces Boulardii (Florastor) 250 mg PO BID [facility] Last Admin: 04/14/17 08:58 Dose: 250 mg
--- NOTE | 2017-04-14 11:57 | DIS ---
PRIMARY CARE PHYSICIAN: Dr. Jonathon Marquez. DATE OF ADMISSION: 04/10/2017 DATE OF DISCHARGE: 04/14/2017 DISCHARGE DISPOSITION: Home. PRIMARY DISCHARGE DIAGNOSES: 1. Left lower lobe community-acquired pneumonia. 2. Acute diarrhea due to antibiotics, resolved. 3. Acute kidney failure, improved. SECONDARY DISCHARGE DIAGNOSES: Hypothyroidism, hypertension, COPD, history of lymphoma, and history of adenocarcinoma of lung. PRIMARY PROCEDURE/OPERATION: None. RADIOLOGICAL INVESTIGATION: Chest x-ray on admission showed volume loss and left hemithorax, interst itial patchy airspace opacity at left lung base, left pleural effusion, nodular changes in the right lung apex. SIGNIFICANT LABORATORY DATA: WBC 13.8, hemoglobin 11.7, platelet 272. Sodium 142, potassium 3.8, BU N 21, creatinine 0.99, calcium 9.1. Urinalysis normal. Blood culture negative, influenza negative. Urine culture negative. C. diff negative. DISCHARGE MEDICATIONS: Levaquin 500 mg p.o. daily for 7 days, doxycycline 100 mg p.o. twice daily fo r 7 days, Florastor 250 mg p.o. twice daily for 7 days, prednisone 20 mg p.o. daily for 7 days. CONTINUE FOLLOWING MEDICATION: Eliquis 2.5 mg p.o. b.i.d., aspirin 81 mg p.o. daily, Breo Ellipta 1 inhalation daily, Combivent 1 inhalation q.4 hourly, Lisinopril 10 mg p.o. daily, magnesium 500 mg p. o. daily, metoprolol tartrate 25 mg in the morning and 50 mg in the evening, and omeprazole 40 mg p.o . daily. CONTRAINDICATIONS: None. CODE STATUS: FULL CODE. INPATIENT CONSULTANTS: None. ALLERGIES: ADHESIVES, CODEINE. DISCHARGE PLAN: Post hospital, the patient will follow up with primary care physician. The patient is also advised to follow up with magazine journalist as instructed. HOSPITAL COURSE: A 71-year-old female, who was admitted by Dr. Russ Brizuela, please see his H&P for further details. The patient was having increasing shortness of breath, cough, productive of oanh ar sputum with subjective fever. The patient had chest x-ray, which showed left lower lobe infiltrat ion as well as the right upper lobe nodular density. The patient was suspected for pneumonia. She w as treated for IV antibiotic therapy while in hospital. She had blood culture done, which was negati ve. Urine culture negative. Influenza screen came back negative. The patient had acute kidney inju ry, which was resolved with IV fluid. The rest of home medication was continued while in hospital. On discharge, we changed to Levaquin an d doxycycline for another 7 days, probiotics is given. While in hospital when she was on vancomycin and Zosyn, she developed diarrhea. At that time, we checked stool for C. diff and that was negative and diarrhea was under control with Imodium. The patient was doing very well. Her diarrhea is under control. She is on room air. She is ambulatory, tolerating p.o. well. She is feeling more energet ic and she has also expressed her wish to go home today. All new medication prescriptions sent to her pharmacy. Patient is seen and examined at bedside today. Please see my progress note from today for further de tails.
[2017-04-14 13:08] VITALS: BP 160/97; TEMP 98
== END 2017-04-14 13:19 | disposition home or self-care (01) | DRG 194 ==
LOC: ERS 11:26 → T4-A 14:31
PROVIDERS: ADMIT Internal Medicine; ATTEND Internal Medicine
DX: J18.9 Pneumonia, unspecified organism (principal); N17.9 Acute kidney failure, unspecified; K52.1 Toxic gastroenteritis and colitis; J44.9 Chronic obstructive pulmonary disease, unspecified; E11.9 Type 2 diabetes mellitus without complications; I10 Essential (primary) hypertension; E03.9 Hypothyroidism, unspecified; Z85.118 Personal history of other malignant neoplasm of bronchus and lung; Z85.43 Personal history of malignant neoplasm of ovary; Z85.72 Personal history of non-Hodgkin lymphomas; Z87.891 Personal history of nicotine dependence; Z88.5 Allergy status to narcotic agent; Z90.2 Acquired absence of lung [part of]; T36.8X5A Adverse effect of other systemic antibiotics, initial encounter; T36.0X5A Adverse effect of penicillins, initial encounter; Y92.239 Unspecified place in hospital as the place of occurrence of the external cause; Z79.01 Long term (current) use of anticoagulants; Z79.84 Long term (current) use of oral hypoglycemic drugs; Z79.82 Long term (current) use of aspirin; Z79.899 Other long term (current) drug therapy
CPT/HCPCS: 36415; 36416; 51701; 71045; 80048; 80053; 80202; 81003; 82553; 83036; 83605; 83735; 83880; 84484; 85025; 87040; 87086; 87324; 87449; 93005; 94640; 94664; 96365; A4353; J1956; J2405; J2543; J2920; J3370; J7050; J7506; J7620

== ENCOUNTER 2017-04-26 18:03 | Emergency (ER) | payer MEDICARE ==
[~2017-04-26 18:03] MED LIST: ISOVUE-370 76%-LOCM 1 ML ONE
[2017-04-26 20:15] LABS: Troponin I 0.013 ng/mL (< 0.028)
--- NOTE | 2017-04-26 21:22 | CT ---
CT ARTERIOGRAM CHEST WITH IV CONTRAST AND 3D MIP IMAGING: History: Dyspnea. Lung cancer. Comparison: Noncontrast exam earlier on the same date. FINDINGS: There is god contrast opacification of the pulmonary arteries and thoracic aorta with normal branchin g of the great vessels. Post-operative changes to the left hilum and multiple parenchymal masses are unchanged from the previous exam. Fibrotic changes at the left base are again noted. No pleural fluid or pneumothorax. Findings in the upper abdomen are stable. IMPRESSION: 1. No CT evidence of pulmonary embolus. 2. Parenchymal nodules and other findings are stable and described in detail on noncontrast CT chest performed on the same date. POS: INDIRA
--- NOTE | 2017-05-01 14:30 | EKG ---
Test Reason : Blood Pressure : / mmHG Vent. Rate : 103 BPM Atrial Rate : 103 BPM P-R Int : 114 ms QRS Dur : 080 ms QT Int : 356 ms P-R-T Axes : 088 -01 007 degrees QTc Int : 466 ms Sinus tachycardia Possible Left atrial enlargement Borderline ECG Confirmed by KERON CONTRERAS, MIKAYLA ([id number]), photo editor JOSE MAN ([id number]) on 05/01/2017 2:30:22 PM Referred By: Confirmed By:MIKAYLA CABRALES MD
== END 2017-04-26 21:30 | disposition home or self-care (01) ==
LOC: ERS 18:03
DX: R06.02 Shortness of breath (principal); J44.9 Chronic obstructive pulmonary disease, unspecified; I25.10 Atherosclerotic heart disease of native coronary artery without angina pectoris; I48.91 Unspecified atrial fibrillation; I10 Essential (primary) hypertension; Z79.01 Long term (current) use of anticoagulants; Z79.82 Long term (current) use of aspirin; Z85.43 Personal history of malignant neoplasm of ovary; Z79.899 Other long term (current) drug therapy; Z85.118 Personal history of other malignant neoplasm of bronchus and lung
CPT/HCPCS: 36415; 71275; 93005; 96360

== ENCOUNTER 2018-07-11 07:59 | Emergency (ER) | payer MEDICARE ==
[2018-07-11] MEDS ORDERED: Acetaminophen 500 MG TAB ONE (09:35)
[2018-07-11 09:53] LABS: Hemoglobin 12.8 g/dL (12.0-16.0); Mean Corpuscular HGB CONC 33.3 g/dL (32.0-36.0); Mean Corpuscular Volume 99.3 fL (78.0-98.0); Mean Platelet Volume 7.6 fL (7.4-10.4); Platelet Count 300 thou/uL (130-400); RBC Distribution Width 14.4 % (11.5-14.5); Red Blood Cell (RBC) Count 3.88 mill/uL (4.20-5.40); White Blood Cell (WBC) Count 20.5 thou/uL (4.8-10.8)
[2018-07-11 10:00] LABS: Anion Gap 10 mmol/L (10-20); BUN (Urea Nitrogen) 41 mg/dL (9.8-20.1); Calc. Creatinine Clearance 0 mL/min (70-130); Calcium 10.3 mg/dL (7.8-10.44); Carbon Dioxide 29 mmol/L (23-31); Chloride 105 mmol/L (98-107); Estimated GFR-MDRD 31; Glucose 81 mg/dL (83-110); Potassium 4.4 mmol/L (3.5-5.1); Sodium 140 mmol/L (136-145)
--- NOTE | 2018-07-11 10:08 | CT ---
CT Brain WO Con History: [Headache. Hypertension.] Comparison: None. Findings: No acute hemorrhage or infarct. No midline shift or mass effect. Ventricular size and extra -axial CSF spaces are normal. Calvarium is intact. Paranasal sinuses and mastoids are clear. Impression: No acute intracranial abnormality.
[2018-07-11 10:22] LABS: Band 1 % (5-11); Lymphocytes 30 % (21-51); MDiff Complete? YES; Monocytes 11 % (0-10); Neutrophil 58 % (42-75); RBC Morphology Normal
--- NOTE | 2018-07-11 12:09 | RAD ---
CHEST ONE VIEW: HISTORY: Elevated blood pressure. Headache. COMPARISON: 04/26/2017 FINDINGS: Stable pleural and parenchymal opacity changes in the left lung with considerable volume loss. Somew hat secondarily hyperinflated right lung. Left apical pleural thickening. No confluent pneumonia, o vert edema, or other acute process. IMPRESSION: 1. Overall stable marked left-sided volume loss and pleural and parenchymal opacity changes. 2. Minimal linear parenchymal changes in the right chest, evidence for chronic change. 3. No new process. POS: TPC
[2018-07-11 12:27] LABS: Bilirubin Negative (Negative); Blood, Urine Negative (Negative); Clarity CLEAR (Clear); Glucose, Urine (Dipstick) Negative (Negative); Leukocyte Negative (Negative); Nitrite Negative (Negative); Protein, Urine (Dipstick) 30 mg/dL (Neg-Trace); Specific Gravity, Urine 1.014 (1.002-1.036); Urobilinogen 0.2 mg/dL (0.2-1.0)
[2018-07-11 12:33] LABS: Bacteria/HPF None Seen HPF (None Seen); Hyaline Casts/LPF 0-3 HYALINE CAST LPF (0-3 Hyaline); RBC/HPF 0-3 HPF (0-3); Squamous Epithelial 0-3 HPF (0-3); WBC/HPF 0-3 HPF (0-3)
--- NOTE | 2018-07-11 15:24 | HP ---
PRIMARY CARE PHYSICIAN: Emiliano Gutierrez MD and Jonathon Marquez MD HISTORY OF PRESENT ILLNESS: Referred to the [facility] by [facility] for hypertension, headache, and leukocytosis. The patient had a headache for 2 days. She noted that her blood pressure was up in the 200/100 range. She has a pill she takes just p.r.n. for blood pressure, which is Apresoline 25 three times a day. Her blood pressure came down with it. Headache has resolved. She was noted to have a lump on her left neck, which was being treated by MD Summers for with clindamycin. She is on nivolumab for lung cancer. She has been taking it once a week. Approximately 2 weeks ago, she started to have weakness in her arms and legs, stiffness. Her nivolumab was stopped. She was on prednisone high dose. Her symptoms resolved. She is still on the prednisone, and she has appointment with MD Summers in 7 days. PAST MEDICAL HISTORY: Pertinent for hypertension, COPD, lymphoma in the distant past. Adenocarcinoma of the left lung, post lobectomy, ovarian cancer. She has had ovarian surgery, a tonsillectomy and a lung lobectomy on the left. CURRENT MEDICATIONS: 1. Eliquis 5 mg twice a day. 2. Lorazepam 0.5 mg p.r.n. 3. Gabapentin 300 mg a day. 4. Hydralazine 25 mg p.o. t.i.d. p.r.n. 5. Prednisone 40 mg a day. 6. Metoprolol 25 mg three times a day. 7. Omeprazole 40 mg a day. 8. Aspirin 81 mg a day. 9. Clindamycin 300 mg three times a day. 10. Opdivo IV once a month. ALLERGIES: CODEINE SULFATE. FAMILY HISTORY: Father of COPD. Mother is 96, alive and well with Alzheimer's. She is one of eight siblings, all of cancer, except she and 1 sibling. SOCIAL HISTORY: . next of kin. Full code status. She quit smoking in 1994. Drinks no alcohol. REVIEW OF SYSTEMS: HEAD: Dizziness and headache when her blood pressure goes up. This has happened just since she was started on the prednisone. EYES: No double vision, blurred vision, or flashing lights. EARS, NOSE, AND THROAT. She has a lump on her left neck. It was tender and painful. She was started on clindamycin for same. The tenderness has resolved. She notes no distinct swelling, but it certainly has not enlarged. She has no ear pain or drainage. No nasal bleeding. No trouble swallowing. CARDIAC: No chest pain, orthopnea, or paroxysmal nocturnal dyspnea. RESPIRATION: She has chronic cough. No wheezing. No asthma. GASTROINTESTINAL: She has had 1 episode of nausea and vomiting when her headache was bad. No abdominal pain. No diarrhea. GENITOURINARY: No hematuria or dysuria. MUSCULOSKELETAL: No pain or swelling in arms and legs. NEUROLOGICAL: No strokes, seizures, or focal weakness. PSYCHIATRIC: She has some anxiety for which she takes lorazepam p.r.n. SKIN: No bruising, bleeding, or rash. She has the aforementioned lump under her left ear in her neck. HEME/LYMPH: No tender or swollen lymph nodes in the axilla, inguinal, or cervical area. PHYSICAL EXAMINATION: GENERAL: She is alert, oriented, and cooperative, pleasant lady in no acute distress. VITAL SIGNS: Most recent blood pressure 174/85, pulse 68, respirations 17. HEAD, EYES, EARS, NOSE, AND THROAT: Pupils are equal, round, and reactive to light. Extraocular movements are intact. Sclerae are white. Tympanic membranes are clear. Nose is clear. Oral mucous membranes are wet. NECK: A 2 cm indurated mass under the left ear. No tenderness. No redness or erythema. No other lymph nodes in her neck. No thyromegaly. CHEST: Clear to auscultation and percussion on the right. Dull to percussion with fine rales on the left. HEART: Regular rate and rhythm. First and second second heart sounds are clear. There are no murmurs or gallops. ABDOMEN: Soft. Bowel sounds are normal. There is no hepatosplenomegaly. No mass. No rebound. No bruits. EXTREMITIES: Reveal no cyanosis, clubbing, or edema. PULSES: Carotid, radial, femoral, and dorsalis pedis pulses intact. SKIN: Warm and dry without bruises or rash. HEME/LYMPH: No tender or swollen lymph nodes in axilla, inguinal, or cervical area. NEUROLOGICAL: Cranial nerves 2 through 12 are intact. Deep tendon reflexes symmetric. IMAGING STUDIES: Chest x-ray essentially opacified left thorax consistent with previous chest x-rays reviewed by me. LABORATORY DATA: White count 20.5, hemoglobin 12.8, platelet count 300,000. Basic metabolic profile, creatinine 1.1, BUN 41. Lytes normal. Urine was clear. Discussed this with the patient and the emergency room physician, I think her leukocytosis is clearly related to her moderate to high dose prednisone usage. Also, her blood pressure has been elevated since she started that. My recommendations are simply that she take her Apresoline 25 mg three times a day every day instead of p.r.n. and that she keep her appointment with MD Summers next week. FINAL DIAGNOSES: Headache, hypertension, lung cancer post left lobectomy, leukocytosis secondary to steroid therapy, chronic obstructive pulmonary disease. Job ID: [id number] [facility]
== END 2018-07-11 14:44 | disposition home or self-care (01) ==
LOC: ERS 07:59
DX: I10 Essential (primary) hypertension (principal); R51 Headache; D72.829 Elevated white blood cell count, unspecified; C34.90 Malignant neoplasm of unspecified part of unspecified bronchus or lung; J44.9 Chronic obstructive pulmonary disease, unspecified; I25.10 Atherosclerotic heart disease of native coronary artery without angina pectoris; I48.91 Unspecified atrial fibrillation; F41.9 Anxiety disorder, unspecified; Z79.82 Long term (current) use of aspirin; Z79.899 Other long term (current) drug therapy
CPT/HCPCS: 36415; 70450; 71045; 80048; 81003; 81015; 83605; 85025; 87040; 87086; 93005; 96360

== ENCOUNTER 2018-07-19 18:16 | Inpatient (IN) | payer MEDICARE ==
[2018-07-19 18:52] LABS: #Basophils 0.1 thou/uL (0.0-0.2); #Eosinphils 0.3 thou/uL (0.0-0.7); #Lymphocytes 2.9 thou/uL (1.20-3.40); #Neutrophils 6.2 thou/uL (1.40-6.50); %Basophils 0.8 % (0.0-1.0); %Eosinophils 3.1 % (0.0-10.0); %Lymphocytes 27.6 % (21.0-51.0); %Monocytes 9.8 % (0.0-10.0); %Neutrophils 58.6 % (42.0-75.0); Hemoglobin 11.8 g/dL (12.0-16.0); Mean Corpuscular HGB CONC 33.2 g/dL (32.0-36.0); Mean Corpuscular Hemoglobin 33.3 pg (27.0-31.0); Platelet Count 253 thou/uL (130-400); RBC Distribution Width 14.1 % (11.5-14.5); Red Blood Cell (RBC) Count 3.55 mill/uL (4.20-5.40); White Blood Cell (WBC) Count 10.6 thou/uL (4.8-10.8)
--- NOTE | 2018-07-19 19:03 | RAD ---
AP view chest. HISTORY: Chest pain AP view chest obtained on 07/19/2018. Comparison made to previous exam from 07/11/2018. AP view chest demonstrates EKG leads seen over the chest. There is extensive volume loss in the left hemithorax possibly due to previous surgical changes and/or therapy including radiation therapy. No significant interval changes seen since the previous exam from 07/11/2018. The right lung is well aerated. IMPRESSION: Chronic left lung changes not significantly different than previous exam from one week jabari minaya.
[2018-07-19 19:15] LABS: ALT (SGPT) 8 U/L (8-55); AST (SGOT) 13 U/L (5-34); Albumin 3.7 g/dL (3.4-4.8); Alkaline Phosphatase 106 U/L (40-150); Anion Gap 12 mmol/L (10-20); BUN (Urea Nitrogen) 20 mg/dL (9.8-20.1); Bilirubin, Total 0.3 mg/dL (0.2-1.2); CK (CPK) 89 U/L (29-168); Calc. Creatinine Clearance 0 mL/min (70-130); Carbon Dioxide 26 mmol/L (23-31); Chloride 106 mmol/L (98-107); Estimated GFR-MDRD 31; Globulin 2.3 g/dL (2.4-3.5); Glucose 83 mg/dL (83-110); Potassium 3.9 mmol/L (3.5-5.1); Sodium 140 mmol/L (136-145)
[2018-07-19] MEDS ORDERED: Aspirin Chewable 81 MG TAB ONE (20:31)
[2018-07-19 22:40] LABS: Troponin I 0.086 ng/mL (< 0.028)
[2018-07-19 22:47] VITALS: BMI 24.4
[2018-07-20 01:48] LABS: Troponin I 0.236 ng/mL (< 0.028)
[2018-07-20] MEDS ORDERED: Acetaminophen 650 MG Suppository PR PRN (03:23)
[2018-07-20] MEDS ORDERED: Ondansetron PF 4 MG/2 ML Vial IVP PRN (03:23)
[2018-07-20] MEDS ORDERED: Ondansetron ODT 4 MG TAB PO PRN (03:23)
[2018-07-20] MEDS ORDERED: diphenhydrAMINE 25 MG CAP PO PRN (03:25)
[2018-07-20] MEDS ORDERED: hydrALAZINE 25 MG TAB PO PRN (03:25)
--- NOTE | 2018-07-20 05:31 | HP ---
PRIMARY CARE PHYSICIAN: Jonathon Marquez MD CODE STATUS: Full code. TIME OF EVALUATION: 3:15 a.m. CHIEF COMPLAINT: Chest pain and high blood pressure. HISTORY OF PRESENT ILLNESS: This is a 72-year-old female patient with past medical history of lung cancer, status post lobectomy in the left lower lobe, COPD, asthma, lymphoma, ovarian cancer, coronary artery disease, arrhythmia, atrial fibrillation, came to the hospital after having high blood pressure associated with chest pain. The pain started 2 hours prior to presentation. The patient has high blood pressure, needing hydralazine with improvement of the symptoms. As such, the blood pressure came down. The symptoms are on the left side of the chest with radiation to the jaw. It started suddenly, constant. REVIEW OF SYSTEMS: CONSTITUTIONAL: No fever, chills, or generalized weakness. RESPIRATORY: No cough, sputum production, or shortness of breath. CARDIOVASCULAR: Chest pain as mentioned in the HPI, palpitation. GASTROINTESTINAL: No nausea, vomiting, diarrhea, or abdominal pain. ORTHO/PROSTHETIC AIDE: No dizziness, headache, or feeling lightheaded. GENITOURINARY: No burning on urination. EXTREMITIES: No leg swelling. All other systems were reviewed and negative except for the findings mentioned above. PAST MEDICAL HISTORY: As mentioned in the HPI. PAST SURGICAL HISTORY: Lobectomy of left lower lobe, oophorectomy of both ovaries. PSYCHIATRIC HISTORY: Anxiety. SOCIAL HISTORY: No alcohol. No drugs. No smoking history. FAMILY HISTORY: Mother has a history of Alzheimer. Father has a history of end-stage renal disease. Siblings have lung cancer. KNOWN ALLERGIES: Adhesive and codeine sulfate. REPORTED MEDICATIONS: 1. Eliquis. 2. Lorazepam. 3. Hydralazine. 4. Metoprolol. 5. Omeprazole. 6. Aspirin. 7. Clindamycin. 8. Opdivo. PHYSICAL EXAMINATION: VITAL SIGNS: On presentation, blood pressure 167/88 with heart rate 85, respiratory rate was 18, pain 0/10, oxygen saturation was 98% on room air. GENERAL APPEARANCE: The patient is alert, oriented, not in acute distress. HEENT: Eyes, normal conjunctivae. Moist oral mucosa. Anicteric. No JVD. RESPIRATORY: Bilateral air entry. No rales. No wheezes. Symmetric expansion. CARDIOVASCULAR: Normal rate. Regular rhythm. No murmurs. No gallop. No edema. ABDOMEN: Soft. Normal bowel sounds. MUSCULOSKELETAL: Baseline range of motion and strength. No tenderness. SKIN: Warm, intact. No pallor. No rash. No redness. Peripheral pulses are present. Capillary refill seems to be intact. NEUROLOGIC: No evidence of any new focal weakness. Baseline speech. Cranial nerves seems to be intact. PSYCHIATRIC: The patient is in good mood. No anxiety. Optimal judgment. DIAGNOSTIC DATA: EKG was reviewed. The patient has normal sinus rhythm with possible left atrial enlargement, ventricular rate 81, ME 128. QRS 74, QT corrected 418. Chest x-ray was done. The patient has chronic left lung changes, not significantly different than previous exam from 1 week earlier. LABORATORY DATA: Labs were reviewed. The patient has white count 10.6, hemoglobin 11.8, MCV 100, platelet count 253. Chemistry; sodium 140, potassium 3.9, chloride 106, carbon dioxide 26, anion gap 12, BUN 20, creatinine 1.62, GFR 31, glucose 83, calcium 9.0, total bilirubin 0.3, AST 13, ALT 8, alkaline phosphatase 106. CK 89, troponin 0.021, second one 0.086, third one 0.236, globulin 2.3. Serum total protein 6.0. ASSESSMENT AND PLAN: The patient will be placed in the hospital with following medical problems: 1. Chest pain, rule out acute coronary syndrome in the presence of hypertensive emergency. Blood pressure was improved. The patient has a leak of troponin. We will consult Cardiology, we will follow recommendations. We will reconcile home medications. 2. History of lung cancer, on immunotherapy. This problem is chronic, seems to be stable. 3. History of atrial fibrillation. The patient on chronic anticoagulation. We will continue for now. Rate is controlled. The patient is in sinus rhythm. 4. Deep venous thrombosis prophylaxis. The patient is on chronic anticoagulation. Job ID: [id number]
[2018-07-20 05:40] LABS: #Basophils 0.1 thou/uL (0.0-0.2); #Eosinphils 0.4 thou/uL (0.0-0.7); #Lymphocytes 2.4 thou/uL (1.20-3.40); #Monocytes 0.9 thou/uL (0.11-0.59); #Neutrophils 4.9 thou/uL (1.40-6.50); %Basophils 0.7 % (0.0-1.0); %Eosinophils 4.1 % (0.0-10.0); %Lymphocytes 27.6 % (21.0-51.0); %Monocytes 10.4 % (0.0-10.0); %Neutrophils 57.2 % (42.0-75.0); Hemoglobin 11.5 g/dL (12.0-16.0); Mean Corpuscular HGB CONC 32.4 g/dL (32.0-36.0); Mean Corpuscular Hemoglobin 32.5 pg (27.0-31.0); Platelet Count 255 thou/uL (130-400); RBC Distribution Width 14.1 % (11.5-14.5); Red Blood Cell (RBC) Count 3.52 mill/uL (4.20-5.40); White Blood Cell (WBC) Count 8.6 thou/uL (4.8-10.8)
[2018-07-20 05:59] LABS: Anion Gap 10 mmol/L (10-20); BUN (Urea Nitrogen) 18 mg/dL (9.8-20.1); Calc. Creatinine Clearance 32 mL/min (70-130); Calcium 9.2 mg/dL (7.8-10.44); Carbon Dioxide 26 mmol/L (23-31); Chloride 108 mmol/L (98-107); Estimated GFR-MDRD 32; Glucose 78 mg/dL (83-110); Potassium 4.3 mmol/L (3.5-5.1); Sodium 140 mmol/L (136-145)
[2018-07-20] MEDS: Levothyroxine Sodium 25 MCG TAB PO SCH (05:59)
[2018-07-20] MEDS: Metoprolol Tartrate 25 MG TAB PO SCH ×4 (08:52→21:23)
[2018-07-20] MEDS ORDERED: Apixaban 5 MG TAB PO SCH (09:00)
[2018-07-20 09:56] LABS: Troponin I 0.344 ng/mL (< 0.028)
[2018-07-20] MEDS ORDERED: Sodium Chloride 0.9% 1,000 ML IV SCH (10:15)
[2018-07-20 10:32] LABS: CKMB 5.8 ng/mL (0-6.6)
--- NOTE | 2018-07-20 14:32 | PDOC.PN ---
- Subjective Encounter Start Date: 07/20/18 Encounter Start Time: 11:35 Ms. Gregg was seen today in follow-up of Chest pain. she says she feels a bit better this morning. She no longer has any pain. she denies dyspnea. - Objective Resuscitation Status - Order Detail: 07/20/18 03:23 Resuscitation Status Routine Resuscitation Status: FULL: Full Resuscitation MAR Reviewed: Yes Vital Signs & Weight: Vital Signs (12 hours) Temp Pulse Resp BP Pulse Ox 07/20/18 11:22 97.7 F 80 18 123/59 L 95 07/20/18 07:44 70 12 07/20/18 07:23 97.9 F 76 18 122/56 L 96 07/20/18 04:15 97.9 F 67 22 H 127/63 96 Weight Weight 142 lb 4.8 oz I&O: 07/19/18 07/20/18 07/21/18 06:59 06:59 06:59 Intake Total 240 Output Total 450 Balance -210 Result Diagrams: 07/20/18 04:40 07/20/18 04:40 Phys Exam - Physical Examination HEENT: PERRLA Respiratory: no wheezing, no rales, no rhonchi, clear to auscultation bilateral Cardiovascular: RRR, no significant murmur, no rub Gastrointestinal: soft, non-tender, no distention, positive bowel sounds Musculoskeletal: no edema, pulses present Neurological: non-focal, normal sensation, moves all 4 limbs Dx/Plan (1) Acute coronary syndrome Code(s): I24.9 - ACUTE ISCHEMIC HEART DISEASE, UNSPECIFIED Status: Acute (2) HTN (hypertension) Code(s): I10 - ESSENTIAL (PRIMARY) HYPERTENSION Status: Chronic Qualifiers: Hypertension type: essential hypertension Qualified Code(s): I10 - Essential (primary) hypertension (3) Lung cancer Code(s): C34.90 - MALIGNANT NEOPLASM OF UNSP PART OF UNSP BRONCHUS OR LUNG Status: Chronic (4) Atrial fibrillation Code(s): I48.91 - UNSPECIFIED ATRIAL FIBRILLATION Status: Chronic (5) Coronary artery disease Code(s): I25.10 - ATHSCL HEART DISEASE OF [place] CORONARY ARTERY W/O ANG PCTRS Status: Chronic (6) COPD (chronic obstructive pulmonary disease) Status: Chronic Qualifiers: COPD type: unspecified COPD Qualified Code(s): J44.9 - Chronic obstructive pulmonary disease, unspecified (7) Chronic kidney disease, stage 3 Code(s): N18.3 - CHRONIC KIDNEY DISEASE, STAGE 3 (MODERATE) Status: Chronic - Plan * Chest pain- due to an Acute coronary syndrome- continue aspirin and Beta- elvin therapy * She has been evaluated by Cardiology, and the plan is for cardiac cath tomorrow * HTN- blood pressure is stable * AFIB- her heart rate is stable, and continue Eliquis for stroke prevention . * CKD-stage 3- the plan is for cardiac cath, and with her chronic kidney disease will consult Nephrology due to the potential for contrast Nephropathy
[2018-07-20] MEDS: Sodium Chloride 0.9% 1,000 ML IV SCH (17:23)
[2018-07-20 17:43] LABS: Bilirubin Negative (Negative); Blood, Urine Negative (Negative); Clarity CLEAR (Clear); Glucose, Urine (Dipstick) Negative (Negative); Leukocyte Negative (Negative); Nitrite Negative (Negative); Protein, Urine (Dipstick) Negative (Neg-Trace); Specific Gravity, Urine 1.012 (1.002-1.036); Urobilinogen 0.2 mg/dL (0.2-1.0)
[2018-07-20 17:48] LABS: Bacteria/HPF 2+ HPF (None Seen); Hyaline Casts/LPF 0-3 HYALINE CAST LPF (0-3 Hyaline); RBC/HPF 0-3 HPF (0-3); Squamous Epithelial 0-3 HPF (0-3); WBC/HPF 0-3 HPF (0-3)
--- NOTE | 2018-07-20 17:59 | CON ---
DATE OF CONSULTATION: 07/20/2018 HISTORY OF PRESENT ILLNESS: Ms. Gregg is a 72-year-old white female with multiple medical problems, who was admitted for chest pain. The plan is for her to undergo cardiac cath. We are being consulted for elevated creatinine of 1.61 mg%. She also has an elevated troponin I of 0.409. Please note that back in 2018, the patient's creatinine was 1.05. The patient tells me she underwent renal biopsy for a kidney lesion and this was done because there was suspicion it might be a malignant lesion and the finding was there was no cancer. Of interest, we are now following this patient for the elevated creatinine of 1.61 mg%. REVIEW OF SYSTEMS: Positive for chronic cough. Positive for occasional chest pain. No overt shortness of breath. No nausea. No vomiting. No diarrhea. No constipation. No productive cough. No fever or chills. No gross hematuria. No dysuria. No urinary frequency. No hematochezia. No melena. No hematemesis. No abdominal pain. No headache. No sore throat. Occasional joint pains. MEDICATIONS: Currently on, 1. Metoprolol tartrate 75 mg p.o. t.i.d. 2. Ativan 0.5 mg p.o. b.i.d. p.r.n. 3. Levothyroxine 25 mcg daily. 4. Hydralazine 25 mg p.o. t.i.d. p.r.n. 5. Aspirin 81 mg tablet daily. 6. DuoNeb b.i.d. 7. Normal saline 75 mL/hour. Home medications included, 1. Eliquis 5 mg p.o. b.i.d. 2. Aspirin 81 mg tablet at bedtime. 3. Combivent 1 puff b.i.d. 4. Levothyroxine 25 mcg q.a.m. 5. Metoprolol tartrate 75 mg p.o. t.i.d. 6. Hydralazine 25 mg p.o. t.i.d. PAST MEDICAL HISTORY: 1. COPD. 2. History of chest pain, ovarian cancer in remission; history of solitary kidney and lung cancer, status post resection-stable; valvular heart disease, transient atrial fibrillation, hypertension, gastric lymphoma in remission. PAST SURGICAL HISTORY: Status post left lower lobectomy, status post oophorectomy-bilateral, status post mediastinoscopy, status post upper and lower GI endoscopy, status post kidney biopsy, status post bilateral oophorectomy. SOCIAL HISTORY: The patient is , lives in [place], originally from [place]. She has 3 children. Smoked for at least 30 years, 1 to 2 packs per day. Alcohol, none. No IV drug abuse. Retired electrician bus. Education, [employer]. No IV drug abuse. She has 7 siblings. FAMILY HISTORY: Positive family history of cancer and no ESRD. ALLERGIES: NONE, BUT ADVERSE REACTION TO CODEINE. TRAUMA: None. IMMUNIZATION: Up-to-date. HOSPITALIZATIONS: Please see past medical history. PHYSICAL EXAMINATION: VITAL SIGNS: Blood pressure is 123/59, heart rate 80, respiratory rate 18, temperature 97.7, and pulse ox 95%. GENERAL: Awake, alert, comfortable, sitting, not in distress. SKIN: Adequate turgor. HEENT: She has pinkish conjunctivae. Anicteric sclerae. NECK: No neck mass. No carotid bruits. No JVD. CHEST: No deformities. LUNGS: Decreased breath sounds. Positive for wheezing. HEART: Normal sinus rhythm. She has a grade 2/6 systolic murmur. No gallops. No rubs. ABDOMEN: Globular, soft, nontender. No masses. EXTREMITIES: No edema. No deformities. NEUROLOGICAL: Awake and oriented to 3 spheres. Moving all extremities. No tremors or asterixis. No ataxia. LABORATORY DATA: Laboratories of July 20, 2018; white count 8.6, hemoglobin 11.5. Sodium 140, potassium 4.4, chloride 105, carbon dioxide 29, BUN 41, creatinine 1.61, glucose 81, calcium 10.3. Troponin I is 0.021. White count 8.6, hemoglobin 11.5. IMAGING STUDIES: Chest x-ray of July 19, 2018, right lung is well aerated. Left lung shows chronic lung changes. July 11, 2018, CT scan of the brain, no acute intracranial abnormality. Urinalysis of July 11, 2018, negative findings, except for a protein of 30. ASSESSMENT AND PLAN: 1. Acute kidney injury-the patient tells me that she had a renal injury several weeks ago and was being managed at [facility]. She tells me renal function has been improving. Unclear what the creatinine was at that time. Most recent creatinine is 1.6. My bias is to continue current management. Continue IV hydration in anticipation of a planned cardiac cath. I would at least add Mucomyst 600 mg p.o. b.i.d. with this patient. There is no indication for any dialytic intervention. 2. Lung cancer-currently stable and in remission. She is actually on immunotherapy-however, she could not remember the name of the anticancer drug. 3. Chest pain-there is a consideration for a cardiac cath with this patient. I will recheck another basic metabolic profile, CBC in a.m. I will repeat the urinalysis. A renal ultrasound will also be ordered. Overall, agree with current management. Job ID: [id number]
--- NOTE | 2018-07-20 18:04 | ULT ---
Renal ultrasound. HISTORY: Renal failure. Multiple longitudinal and transverse images of the kidneys and bladder is obtained using multihertz c urvilinear transducer. Real-time and color flow images obtained. The right kidney has a pole to pole measurement of 8.9 cm suggesting some right renal cortical atroph y which is mild. No evidence of renal parenchymal masses seen in the right kidney. No evidence of hydronephrosis seen. There is severe left renal atrophy. The urinary bladder demonstrates visualization of the right ureteral jet. Left ureteral jet not seen. No evidence of urinary bladder wall masses seen. IMPRESSION: Severe left renal cortical atrophy. Transcribed Date/Time: 07/20/2018 6:19 PM
[2018-07-20] MEDS ORDERED: Nitroglycerin 0.4 MG TAB (25 Tab Bottle) ONE (19:15)
[2018-07-20] MEDS: Lorazepam 0.5 MG TAB PO PRN (19:21)
[2018-07-20] MEDS: Acetaminophen 325 MG TAB PO PRN (19:23)
[2018-07-20] MEDS ORDERED: Aspirin 81 mg Enteric Coated Tablet PO SCH (21:00)
[2018-07-20] MEDS: Acetylcysteine 10% 100 MG/ML 30 ml Vial PO SCH (21:22)
--- NOTE | 2018-07-21 02:21 | CON ---
DATE OF CONSULTATION: 07/20/2018 REASON FOR CONSULTATION: Chest pain. PRIMARY COOLER SERVICE SUPERVISOR: Gokul Alcantar MD HISTORY OF PRESENT ILLNESS: Ms. Gregg is a very pleasant 72-year-old white female, who comes to the hospital for chest pain. She has a history of lung cancer, currently in remission, had a lobectomy. She has history of COPD. She comes to the hospital after feeling chest pain. This was associated with high blood pressure. Her blood pressure is in the 200s/100s range. She came in, blood pressure was treated, and her symptoms got better. She was admitted and troponin's have been elevated, so Cardiology has been consulted for this. PAST MEDICAL HISTORY: 1. Lung cancer, status post lobectomy, in remission. 2. COPD. 3. Bronchial asthma. 4. Lymphoma in the past. 5. Ovarian cancer in the past. 6. History of atrial fibrillation on anticoagulation for this. PAST SURGICAL HISTORY: 1. Left lower lobe lobectomy. 2. Oophorectomy bilateral. SOCIAL HISTORY: No alcohol or tobacco. Former tobacco user. FAMILY HISTORY: No early coronary artery disease. Father with end-stage renal disease. OUTPATIENT MEDICATIONS: Include, 1. Diphenhydramine. 2. Levothyroxine 25 mcg a day. 3. Lorazepam. 4. Hydralazine 25 mg t.i.d. 5. Aspirin 81 a day. 6. Eliquis 5 mg b.i.d. 7. Combivent. 8. Metoprolol 75 mg b.i.d. 9. Omeprazole 40 mg q.p.m. ALLERGIES: CODEINE, GIVES HER NAUSEA. ADHESIVES GIVES HER BLISTERS AND PULL UP THE SKIN. REVIEW OF SYSTEMS: A 12-point review of systems was done and was all negative unless stated in the history of present illness. PHYSICAL EXAMINATION: VITAL SIGNS: Temperature is 97.7, pulse 80, respiratory rate 20, sat 98% on room air, and blood pressure 148/64. GENERAL: Awake, alert, and oriented x3. No distress. HEENT: Normocephalic and atraumatic. NECK: Supple. LUNGS: Reduced breath sounds. CARDIOVASCULAR: S1 and S2. No S3 or S4. There is a grade 2/6 systolic murmur at the right upper sternal border. ABDOMEN: Soft. Positive bowel sounds. EXTREMITIES: Trace edema. SKIN: Warm and dry. LABORATORY DATA: Laboratory work was reviewed. CBC with a white count of 10, hemoglobin of 11, hematocrit 35, and platelet count 253. Chemistries were unremarkable except for creatinine 1.6 and GFR of 32. Troponin went from 0.02, which is normal up to 0.4. UA was unremarkable except for 2+ urine bacteria. Chest x-ray was reviewed. Renal ultrasound was reviewed. ASSESSMENT: 1. [id number] myocardial infarction. 2. Acute kidney injury and chronic kidney disease. 3. Atrial fibrillation on chronic anticoagulation with Eliquis, currently in sinus. 4. [id number] myocardial infarction. PLAN: 1. She continues to have episodes of chest pain. We will plan on doing a heart catheterization to evaluate for coronary artery disease. We will plan on doing this tomorrow as she had a dose of Eliquis this morning. We will try to do tomorrow in the afternoon. We spoke at length with risks and benefits of the procedure. Risks include, but not limited to, stroke, [place], , bleeding, need for blood transfusion, limb loss, organ loss, need for emergent bypass surgery. She understands, verbalized understanding of this, and agrees to proceed. We will do conscious sedation and bare metal stenting if needed as she will need long-term anticoagulation given her history of atrial fibrillation. 2. Further recommendations per results of coronary angiogram. Job ID: [id number]
[2018-07-21] MEDS: Sodium Chloride 0.9% 1,000 ML IV SCH ×3 (03:04→21:12)
[2018-07-21 06:42] LABS: #Basophils 0.1 thou/uL (0.0-0.2); #Eosinphils 0.3 thou/uL (0.0-0.7); #Lymphocytes 2.5 thou/uL (1.20-3.40); #Monocytes 0.8 thou/uL (0.11-0.59); %Basophils 0.9 % (0.0-1.0); %Eosinophils 4.2 % (0.0-10.0); %Lymphocytes 31.9 % (21.0-51.0); %Monocytes 10.8 % (0.0-10.0); %Neutrophils 52.3 % (42.0-75.0); Hemoglobin 10.8 g/dL (12.0-16.0); Mean Corpuscular HGB CONC 33.3 g/dL (32.0-36.0); Mean Corpuscular Hemoglobin 33.6 pg (27.0-31.0); Mean Platelet Volume 7.9 fL (7.4-10.4); Platelet Count 237 thou/uL (130-400); Red Blood Cell (RBC) Count 3.22 mill/uL (4.20-5.40); White Blood Cell (WBC) Count 7.7 thou/uL (4.8-10.8)
[2018-07-21 06:57] LABS: Anion Gap 11 mmol/L (10-20); BUN (Urea Nitrogen) 18 mg/dL (9.8-20.1); Calc. Creatinine Clearance 33 mL/min (70-130); Carbon Dioxide 26 mmol/L (23-31); Chloride 111 mmol/L (98-107); Estimated GFR-MDRD 33; Glucose 88 mg/dL (83-110); Potassium 4.6 mmol/L (3.5-5.1); Sodium 143 mmol/L (136-145)
[2018-07-21] MEDS: Levothyroxine Sodium 25 MCG TAB PO SCH (06:58)
[2018-07-21] MEDS: Metoprolol Tartrate 25 MG TAB PO SCH ×3 (08:49→20:30)
[2018-07-21] MEDS: Acetylcysteine 10% 100 MG/ML 30 ml Vial PO SCH ×2 (08:50→20:30)
--- NOTE | 2018-07-21 09:16 | PRG ---
DATE OF SERVICE: 07/21/2018 Ms. Gregg is a 72-year-old white female with known history of multiple medical problems including lung cancer and was seen by the Renal Service for creatinine of 1.61 mg%. On close questioning, this patient tells me that she has been told she has chronic renal failure in the past. Renal ultrasound showed left renal atrophy and the right kidney shows some increased echogenicity or cortical thinning. She was initially admitted for chest pain, possibility for cardiac cath remains. This morning, she is doing well. No new complaints. No worsening of shortness of breath. Please note, she has been started on IV hydration. OBJECTIVE: VITAL SIGNS: Blood pressure is 148/67, heart rate 84, respiratory rate 16, temperature 98, and pulse ox 96%. GENERAL: Noted to be awake, alert, sitting comfortable, not in distress. SKIN: Adequate turgor. HEENT: Pinkish conjunctivae, anicteric sclerae. NECK: No neck mass. No carotid bruits. No JVD. CHEST: No deformities. LUNGS: Clear. Decreased breath sounds. Occasional wheezing. HEART: Normal sinus rhythm. No murmur, no gallops or rubs. ABDOMEN: Globular, soft, nontender. No masses. EXTREMITIES: No edema, no deformities. MEDICATIONS: Medications of July 21, 2018, was reviewed. LABORATORY DATA: Laboratories of July 21, 2018, white count 7.7, hemoglobin 10.8. Urinalysis of July 20, 2018, shows no protein, no red cells, no white cells. Sodium 143, potassium 4.6, chloride 111, carbon dioxide 26, BUN 18, creatinine 1.55, calcium 9.7, magnesium 1.3. ASSESSMENT AND PLAN: 1. Hypomagnesemia, p.r.n. correction with magnesium oxide. 2. Acute kidney injury/chronic renal failure-the urine sediment is relatively benign. I would probably continue IV hydration with this patient. She does have structural changes on ultrasound to suggest a chronic renal failure. The exact etiology of her chronic renal failure remains unknown. The possibility of renovascular disease remains with this patient due to the finding of a left atrophic kidney. There is no indication for any dialytic intervention. Renal function remains stable and is actually slightly improved. 3. Chest pain/non-ST elevation myocardial infarction-patient being considered for a possible cardiac cath. Prophylaxis has been done. She is on Mucomyst and IV hydration. We will recheck basic metabolic profile, CBC in the a.m. Job ID: [id number]
[2018-07-21] MEDS ORDERED: Verapamil 5 MG/2 ML VIAL ONE (11:39)
[2018-07-21] MEDS ORDERED: Heparin 10,000 UNITS/1 ML VIAL ONE ×2 (11:39→12:35)
[2018-07-21] MEDS ORDERED: Nitroglycerin 100MG/250ML BOT 250 ML ONE (11:40)
[2018-07-21] MEDS ORDERED: Magnesium 2 GM/50 ML BAG (IN WATER) ONE (12:15)
[2018-07-21] MEDS ORDERED: Fentanyl 100 MCG/2 ML VIAL ONE (12:22)
[2018-07-21] MEDS ORDERED: Midazolam HCl 2 mg/2 ml Vial ONE (12:22)
[2018-07-21] MEDS ORDERED: TICAGRELOR 90 MG TABLET ONE (12:44)
[2018-07-21] MEDS ORDERED: Nitroglycerin 0.4 MG TAB (25 Tab Bottle) SL PRN (12:55)
[2018-07-21] MEDS ORDERED: Magnesium 2 GM/50 ML 2 GM in Premix Bag 1 BAG IVPB SCH (15:15)
[2018-07-21] MEDS: Lorazepam 0.5 MG TAB PO PRN (15:40)
--- NOTE | 2018-07-21 16:54 | PRG ---
DATE OF SERVICE: 07/21/2018 SUBJECTIVE: The patient denies any new complaints at this time. She underwent cardiac catheterization today. No chest pain, shortness of breath, or palpitations reported. REVIEW OF SYSTEMS: The patient denies any nausea, vomiting, or diaphoresis. All other review of systems were reviewed and were found negative. CURRENT MEDICATIONS: Current medications were reviewed. The patient is on, 1. Aspirin. 2. Plavix. 3. Lipitor. 4. Metoprolol. 5. Protonix. OBJECTIVE: VITAL SIGNS: Temperature 97.7, pulse rate of 75, respirations 20, blood pressure of 141/63 with O2 saturation 98% on room air. GENERAL: A 72-year-old female, in no apparent distress. LUNGS: Clear to auscultation bilaterally. No wheezing, rales, or rhonchi. HEART: S1 and S2 present. Regular rate and rhythm. No heaves or pulsation. ABDOMEN: Soft and nontender. Bowel sounds present. No rebound or guarding. EXTREMITIES: No edema or calf tenderness. NEUROLOGIC: Grossly nonfocal. PSYCHIATRIC: Normal affect. Alert, awake, and oriented x3. LABORATORY FINDINGS: 1. WBC 7.7 with hemoglobin 10.8, hematocrit 32.4, platelet count of 237. Chemistry showed sodium 143, potassium 4.6, chloride 111, bicarb 26, BUN 18, creatinine 1.55, magnesium 1.3. 2. Maximum troponin was 0.409. Urinalysis was negative. 3. Chest x-ray by my review showed chronic changes. 4. EKG by my review showed sinus rhythm. IMPRESSION: 1. Avk-NB-ojhlhxlwu myocardial infarction. 2. Coronary artery disease, status post bare metal stent placement to RCA. 3. Acute kidney injury on chronic kidney disease stage 3. 4. Hypomagnesemia. 5. Chronic anemia, macrocytic. 6. Impaired glucose tolerance. 7. History of lung cancer, status post lobectomy, on immunotherapy. 8. Chronic obstructive pulmonary disease/asthma. 9. History of ovarian cancer and lymphoma in the past. 10. Chronic atrial fibrillation, on anticoagulation. Mirella is on hold for cardiac catheterization. 11. Former smoker. 12. Hypothyroidism. 13. Anxiety. PLAN: 1. Aspirin and Plavix will be continued. We will continue IV fluids for acute kidney injury. We will recheck labs in a.m. Magnesium will be replaced. Repeat EKG in a.m. Continue levothyroxine, metoprolol, and statins. 2. Nebulizer treatment as needed. Plan was discussed with the patient. She stated understanding. Job ID: [id number]
[2018-07-21] MEDS ORDERED: Atorvastatin Calcium 20 MG TAB PO SCH (21:00)
[2018-07-22] MEDS: Lorazepam 0.5 MG TAB PO PRN (00:16)
[2018-07-22] MEDS: Sodium Chloride 0.9% 1,000 ML IV SCH (00:17)
[2018-07-22] MEDS: Acetaminophen 325 MG TAB PO PRN (00:21)
[2018-07-22 05:57] LABS: #Basophils 0.1 thou/uL (0.0-0.2); #Eosinphils 0.4 thou/uL (0.0-0.7); #Lymphocytes 2.5 thou/uL (1.20-3.40); #Monocytes 0.7 thou/uL (0.11-0.59); #Neutrophils 4.6 thou/uL (1.40-6.50); %Basophils 0.6 % (0.0-1.0); %Eosinophils 5.4 % (0.0-10.0); %Lymphocytes 30.2 % (21.0-51.0); %Monocytes 8.3 % (0.0-10.0); %Neutrophils 55.5 % (42.0-75.0); Mean Corpuscular HGB CONC 32.8 g/dL (32.0-36.0); Mean Corpuscular Hemoglobin 33.1 pg (27.0-31.0); Mean Platelet Volume 7.6 fL (7.4-10.4); Platelet Count 233 thou/uL (130-400); Red Blood Cell (RBC) Count 3.34 mill/uL (4.20-5.40); White Blood Cell (WBC) Count 8.3 thou/uL (4.8-10.8)
[2018-07-22] MEDS: Levothyroxine Sodium 25 MCG TAB PO SCH (06:15)
[2018-07-22 06:37] LABS: ALT (SGPT) Less than 7 U/L (8-55); AST (SGOT) 14 U/L (5-34); Albumin 3.1 g/dL (3.4-4.8); Alkaline Phosphatase 80 U/L (40-150); Anion Gap 12 mmol/L (10-20); BUN (Urea Nitrogen) 14 mg/dL (9.8-20.1); Bilirubin, Total 0.4 mg/dL (0.2-1.2); Calc. Creatinine Clearance 37 mL/min (70-130); Calcium 8.9 mg/dL (7.8-10.44); Carbon Dioxide 22 mmol/L (23-31); Chloride 109 mmol/L (98-107); Estimated GFR-MDRD 37; Globulin 2.4 g/dL (2.4-3.5); Glucose 82 mg/dL (83-110); Magnesium 1.9 mg/dL (1.6-2.6); Protein, Total 5.5 g/dL (6.0-8.3); Sodium 139 mmol/L (136-145)
[2018-07-22] MEDS ORDERED: Aspirin Chewable 81 MG TAB PO SCH (09:00)
[2018-07-22] MEDS ORDERED: Clopidogrel Bisulfate 75 MG TAB PO SCH (09:00)
[2018-07-22] MEDS: Metoprolol Tartrate 25 MG TAB PO SCH (09:18)
[2018-07-22] MEDS: Acetylcysteine 10% 100 MG/ML 30 ml Vial PO SCH (09:18)
[2018-07-22] MEDS ORDERED: Atorvastatin Calcium 20 MG TAB PO SCH (09:21)
--- NOTE | 2018-07-22 09:38 | PRG ---
DATE OF SERVICE: 07/22/2018 SUBJECTIVE: Ms. Gregg is a 72-year-old white female, who was seen for her acute kidney injury/chronic renal failure. She was initially admitted for chest pain. She underwent a cardiac cath with coronary stent placement. Creatinine is relatively stable. She was given volume depletion. Mucomyst was given as renal protective from the contrast. Doing well. She feels full. For that reason, I will be stopping the IV fluid. No other complaints. No chest pain. OBJECTIVE: VITAL SIGNS: Blood pressure is 155/71, heart rate 71, respiratory rate 18, temperature 97.6, pulse ox 97%. GENERAL EXAM: Awake, alert, sitting comfortable, not in distress. SKIN: Adequate turgor. HEENT: Pinkish conjunctivae. Anicteric sclerae. NECK: No neck mass. No carotid bruits. No JVD. CHEST: No deformities. LUNGS: Decreased breath sounds. HEART: Normal sinus rhythm. No murmurs, gallops, or rubs. ABDOMEN: Globular, soft, nontender. No masses. EXTREMITIES: No edema. No deformities. MEDICATIONS: Medications of July 22, 2018, reviewed. LABORATORY DATA: Laboratories of July 22, 2018; white count 8.2, hemoglobin 11. Sodium 139, potassium 4, chloride 109, carbon dioxide 22, BUN 14, creatinine 1.38, magnesium is 1.9. AST 14, ALT less than 7, albumin 3.1. ASSESSMENT AND PLAN: 1. Status post myocardial infarction-stable, status post cardiac cath with coronary stent placement, doing well. 2. Acute kidney injury/chronic renal failure. Stabilizing renal function with a creatinine noted at 1.38. We will discontinue the IV fluids since the patient is feeling full. Mucomyst for one more day. 3. Overall, agree with current management. Recheck basic metabolic and CBC in a.m. Job ID: [id number]
[2018-07-22 13:06] VITALS: BP 161/71; TEMP 97.7
--- NOTE | 2018-07-22 13:27 | DIS ---
DATE OF ADMISSION: 07/20/2018 DATE OF DISCHARGE: 07/22/2018 DISCHARGE DISPOSITION: Home. FOLLOWUP: 1. Follow up with primary care physician, Dr. Marquez next week. 2. Follow up with Cardiology, Dr. Alcantar as scheduled. 3. Outpatient cardiac rehabilitation. ALLERGIES: THE PATIENT IS ALLERGIC TO CODEINE. THE PATIENT WAS SEEN AND EXAMINED ON THE DAY OF DISCHARGE. DENIES ANY NEW COMPLAINTS. DISCHARGE MEDICATIONS: 1. Plavix 75 mg daily (new medication for 1 month). 2. Protonix 40 mg daily. 3. Lipitor 40 mg daily. 4. Sublingual nitroglycerin as needed. All other home medications including metoprolol and Eliquis were resumed. The patient will continue aspirin, Plavix, and Eliquis for 1 month. After 1 month, she will discontinue Plavix and continue aspirin with Eliquis. BRIEF HOSPITAL COURSE: The patient is a 72-year-old female with coronary artery disease and atrial fibrillation, currently on anticoagulation, presented to the hospital with chest discomfort. Her workup was consistent with non-ST elevation DC. Maximum troponin was 0.409. She was evaluated by Cardiology, Dr. Alcantar. She underwent a cardiac catheterization with bare-metal stent placement to the proximal RCA. She has been started on Plavix. Due to potential interaction of PPI with Plavix, omeprazole has been changed to pantoprazole. She is chest pain free and has been cleared by Cardiology for discharge. The patient also had renal insufficiency with a creatinine of 1.62 on admission. She was started on IV fluids. Her creatinine on the day of discharge is 1.38. Repeat basic metabolic profile after 1 week is recommended. Primary care physician advised to follow. The patient also had hypomagnesemia with magnesium of 1.3 that has been replaced. Magnesium on the day of discharge is 1.9. FINAL DIAGNOSES: 1. Non-ST elevation myocardial infarction. 2. Coronary artery disease with bare-metal stent placement to right coronary artery this admission. 3. Acute kidney injury on chronic kidney disease, stage 3, improving. 4. Hypomagnesemia. 5. Chronic macrocytic anemia. 6. Impaired glucose tolerance. 7. History of lung cancer, status post lobectomy on immunotherapy. 8. Chronic obstructive pulmonary disease/asthma. 9. History of ovarian cancer and lymphoma in the past. 10. Chronic atrial fibrillation, on anticoagulation. 11. Former smoker. 12. Hypothyroidism. 13. Anxiety. PLAN: Plan of care was discussed with the patient and the family in detail, they stated understanding. Job ID: [id number]
[2018-07-22] MEDS ORDERED: Apixaban 5 MG TAB PO SCH (21:00)
--- NOTE | 2018-07-23 13:34 | EKG ---
Test Reason : STAT Blood Pressure : / mmHG Vent. Rate : 120 BPM Atrial Rate : 120 BPM P-R Int : 142 ms QRS Dur : 074 ms QT Int : 320 ms P-R-T Axes : 081 -09 044 degrees QTc Int : 452 ms Sinus tachycardia Possible Left atrial enlargement Septal infarct (cited on or before 11-JUL-2018) Abnormal ECG When compared with ECG of 19-JUL-2018 18:25, (Unconfirmed) Nonspecific T wave abnormality now evident in Inferior leads Confirmed by DR. Jair JOHN ([id number]) on 07/23/2018 1:34:28 PM Referred By: Confirmed By:DR. Jair JOHN
--- NOTE | 2018-07-23 13:49 | EKG ---
Test Reason : POST STENT Blood Pressure : / mmHG Vent. Rate : 075 BPM Atrial Rate : 075 BPM P-R Int : 150 ms QRS Dur : 078 ms QT Int : 398 ms P-R-T Axes : 093 018 027 degrees QTc Int : 444 ms Normal sinus rhythm Normal ECG When compared with ECG of 20-JUL-2018 19:17, (Unconfirmed) Vent. rate has decreased BY 45 BPM Criteria for Septal infarct are no longer Present Nonspecific T wave abnormality no longer evident in Lateral leads Confirmed by DR. Jair JOHN ([id number]) on 07/23/2018 1:49:18 PM Referred By: OFELIA Confirmed By:DR. Jair JOHN
--- NOTE | 2018-07-23 13:51 | EKG ---
Test Reason : Blood Pressure : / mmHG Vent. Rate : 075 BPM Atrial Rate : 075 BPM P-R Int : 148 ms QRS Dur : 076 ms QT Int : 398 ms P-R-T Axes : 095 042 051 degrees QTc Int : 444 ms Normal sinus rhythm Normal ECG When compared with ECG of 21-JUL-2018 14:12, (Unconfirmed) No significant change was found Confirmed by DR. Jair JOHN ([id number]) on 07/23/2018 1:50:50 PM Referred By: OFELIA Confirmed By:DR. Jair JOHN
== END 2018-07-22 13:31 | disposition home or self-care (01) | DRG 249 ==
LOC: ERS 18:16 → 2SW 22:01 → OBSVTOIN 07-20 10:52 → 2NO 07-20 20:18
PROVIDERS: ADMIT Hospitalist; ATTEND Hospitalist
PROC: 02703DZ Dilation of Coronary Artery, One Artery with Intraluminal Device, Percutaneous Approach (ICD-10-PCS; principal; 2018-07-21)
PROC: 4A023N7 Measurement of Cardiac Sampling and Pressure, Left Heart, Percutaneous Approach (ICD-10-PCS; 2018-07-21)
PROC: B2111ZZ Fluoroscopy of Multiple Coronary Arteries using Low Osmolar Contrast (ICD-10-PCS; 2018-07-21)
PROC: B2151ZZ Fluoroscopy of Left Heart using Low Osmolar Contrast (ICD-10-PCS; 2018-07-21)
DX: I21.4 Non-ST elevation (NSTEMI) myocardial infarction (principal); C34.90 Malignant neoplasm of unspecified part of unspecified bronchus or lung; N17.9 Acute kidney failure, unspecified; J44.9 Chronic obstructive pulmonary disease, unspecified; I25.10 Atherosclerotic heart disease of native coronary artery without angina pectoris; F41.9 Anxiety disorder, unspecified; N18.3 Chronic kidney disease, stage 3 (moderate); I12.9 Hypertensive chronic kidney disease with stage 1 through stage 4 chronic kidney disease, or unspecified chronic kidney disease; E83.42 Hypomagnesemia; D53.9 Nutritional anemia, unspecified; R73.02 Impaired glucose tolerance (oral); E03.9 Hypothyroidism, unspecified; I48.2 Chronic atrial fibrillation; Z90.2 Acquired absence of lung [part of]; Z85.43 Personal history of malignant neoplasm of ovary; Z85.72 Personal history of non-Hodgkin lymphomas; Z79.82 Long term (current) use of aspirin; Z90.722 Acquired absence of ovaries, bilateral; Z87.891 Personal history of nicotine dependence; Z88.5 Allergy status to narcotic agent
CPT/HCPCS: 36415; 71045; 76775; 80048; 80053; 81001; 82550; 82553; 83735; 84484; 85025; 85347; 92928; 93005; 93010; 93458; 93798; 94640; 94760; 99152; C1769; C1876; C1887; J1644; J2250; J3010; J3475; J7608; J7620; Q0163

== ENCOUNTER 2019-01-18 12:18 | Inpatient (IN) | payer MEDICARE ==
[2019-01-18 12:55] LABS: Actual Bicarbonate (HCO3a) 14.9 mEq/L (22-28); Analyzer IN Cardio ER; Base Excess (BEa) -14.6 mEq/L (-2.0 to +3.0); CO2 Tension 51.8 mmHg (35.0-45.0); Calcium, Ionized 1.15 mmol/L (1.12-1.30); Carboxyhemoglobin (COHb) 0.2 gm% (0.0-3.0); Hemoglobin (Hb) 10.1 g/dL (12.0-16.0); O2 Tension (PaO2) 89.8 mmHg (> 70.0); Potassium - ABG Lab 4.45 mmol/L (3.70-5.30)
[2019-01-18 13:08] LABS: Puncture Site RRA; pH, Arterial 7.08 (7.35-7.45)
[2019-01-18 13:12] LABS: Mean Corpuscular HGB CONC 32.8 g/dL (32.0-36.0); Mean Corpuscular Hemoglobin 33.5 pg (27.0-31.0); Mean Platelet Volume 8.3 fL (7.4-10.4); Platelet Count 151 thou/uL (130-400); RBC Distribution Width 13.2 % (11.5-14.5); Red Blood Cell (RBC) Count 2.99 mill/uL (4.20-5.40); White Blood Cell (WBC) Count 19.6 thou/uL (4.8-10.8)
[2019-01-18 13:21] LABS: Band 18 % (5-11); Lymphocytes 51 % (21-51); MDiff Complete? YES; Metamyelocyte 1 % (0-0); Monocytes 2 % (0-10); Neutrophil 28 % (42-75); Polychromasia SLIGHT = 2-3 cells (100X) (0-2/hpf); RBC Morphology Normal
--- NOTE | 2019-01-18 13:29 | RAD ---
Portable frontal chest radiograph: 01/18/2019 COMPARISON: 07/27/2018 HISTORY: Unresponsive patient, lung cancer FINDINGS: The patient is rotated to the left. Endotracheal tube and nasogastric tube in proper positi on. Postoperative clips overlie the left hilar region. There is a mass in the lateral aspect of the right upper lobe measuring approximately 1.7 cm, stable when compared to the prior chest radiograph. There is dense pleural and parenchymal opacity within the mid left lung zone and left lung base, stable as well. There is increased linear interstitial density noted throughout the right lung, worsened when compare d to the prior exam. Differential diagnosis would include interstitial pulmonary edema or less likely inflammatory/infectious process. IMPRESSION: Lines and tubes as detailed above. Interstitial prominence which may signify interstitial edema. Short-term follow-up imaging following treatment to document resolution advised. Additional chronic findings consistent with the provided history of malignancy.
[2019-01-18 13:46] LABS: CKMB 2.7 ng/mL (0-6.6)
[2019-01-18 14:13] LABS: ALT (SGPT) 319 U/L (8-55); AST (SGOT) 433 U/L (5-34); Albumin 2.3 g/dL (3.4-4.8); Alkaline Phosphatase 249 U/L (40-110); Anion Gap 24 mmol/L (10-20); BUN (Urea Nitrogen) 23 mg/dL (9.8-20.1); Bilirubin, Total 0.3 mg/dL (0.2-1.2); Calc. Creatinine Clearance 0 mL/min (70-130); Calcium 9.1 mg/dL (7.8-10.44); Carbon Dioxide 18 mmol/L (23-31); Chloride 106 mmol/L (98-107); Estimated GFR-MDRD 34; Globulin 1.9 g/dL (2.4-3.5); Glucose 245 mg/dL (83-110); Potassium 4.9 mmol/L (3.5-5.1); Protein, Total 4.2 g/dL (6.0-8.3); Sodium 143 mmol/L (136-145)
[2019-01-18] MEDS ORDERED: Piperacillin/Tazobactam 3.375 GM VIAL ONE (14:28)
[2019-01-18 15:23] LABS: INR-International Normal Ratio 1.3; PTT 37.3 SEC (22.9-36.1); Prothrombin Time 16.3 SEC (12.0-14.7)
[2019-01-18 15:23] LABS: Lactic Acid 13.2 mmol/L (0.5-2.2)
--- NOTE | 2019-01-18 15:23 | CT ---
CT BRAIN WITHOUT CONTRAST: HISTORY: Unresponsive. Altered mental status. Lung cancer. FINDINGS: Absence of IV contrast reduces the sensitivity of the exam, particularly for evaluation of metastatic disease. No evidence of infarct, hemorrhage, midline shift, or abnormal extraaxial fluid collection is seen. The ventricular size is normal and the basilar cisterns patent. The bony calvarium is intact. There is fluid in the paranasal sinuses. IMPRESSION: No CT evidence of acute process. POS: OFF
[2019-01-18 15:37] LABS: Actual Bicarbonate (HCO3a) 13.2 mEq/L (22-28); Analyzer IN Cardio ER; CO2 Tension 31.6 mmHg (35.0-45.0); Calcium, Ionized 1.13 mmol/L (1.12-1.30); Carboxyhemoglobin (COHb) 0.3 gm% (0.0-3.0); Hemoglobin (Hb) 12.7 g/dL (12.0-16.0); O2 Tension (PaO2) 163.1 mmHg (> 70.0); Potassium - ABG Lab 4.24 mmol/L (3.70-5.30)
[2019-01-18 15:45] LABS: Puncture Site RRA; pH, Arterial 7.24 (7.35-7.45)
[2019-01-18 15:55] LABS: Bilirubin Negative (Negative); Blood, Urine 2+ (Negative); Clarity Turbid (Clear); Glucose, Urine (Dipstick) 200 mg/dL (Negative); Leukocyte Negative Leu/uL (Negative); Nitrite Negative (Negative); Protein, Urine (Dipstick) 600 mg/dL (Neg-Trace); Urobilinogen Normal mg/dL (Less than 2); WBC/HPF Greater than 50 HPF (0-3)
[2019-01-18 15:57] LABS: Troponin I 0.615 ng/mL (< 0.028)
[2019-01-18 16:04] LABS: Mucous/LPF 2+ LPF (<2+)
[2019-01-18 16:08] LABS: Bacteria/HPF Rare-Few HPF (None Seen)
[2019-01-18] MEDS ORDERED: Ondansetron PF 4 MG/2 ML Vial IVP PRN (16:30)
[2019-01-18] MEDS ORDERED: Ondansetron ODT 4 MG TAB SL PRN (16:30)
[2019-01-18] MEDS ORDERED: EPINEPHrine 1 MG, Admixture Fee 1 EACH in Dextrose 5% in Water 250 ML IVPB SCH (16:45)
[2019-01-18 18:05] VITALS: BMI 19.8
[2019-01-18 18:43] LABS: Troponin I 1.138 ng/mL (< 0.028)
[2019-01-18] MEDS: methylPREDNISolone Sod Succ 40 MG VIAL IVP SCH (19:33)
[2019-01-18] MEDS: Sodium Chloride 0.9% 1,000 ML IV SCH (19:34)
[2019-01-18] MEDS ORDERED: Vancomycin HCl 750 MG in Sodium Chloride 0.9% 250 ML 250 ML IVPB SCH (20:00)
[2019-01-18] MEDS: Piperacillin/Tazobactam 3.375 GM in Sodium Chloride 0.9% 100 ML IVPB SCH (20:30)
--- NOTE | 2019-01-18 21:20 | CON ---
DATE OF CONSULTATION: 01/18/2019 SERVICE: Pulmonary Medicine. REASON FOR CONSULTATION: ICU patient. HISTORY OF PRESENT ILLNESS: The patient is a 73-year-old white female with past medical history significant for COPD. She was in her usual state of health this morning when she woke up. About 15 minutes later, she called out for help and when she was checked on, she was pulseless and unresponsive. No CPR was initiated by family members. They called 911. By the time they got out to her, she was completely pulseless, and ayala. CPR was initiated. After an excess of 30 minutes (based on my understanding), return of circulation was re-established. The patient has multiple comorbidities and has advanced cancer processes. She cannot provide any additional elements of the history in her current situation. PAST MEDICAL HISTORY: 1. COPD. 2. Hypertension. 3. Remote history of lymphoma. 4. Adenocarcinoma of the left lung, status post lobectomy. 5. Ovarian cancer. PAST SURGICAL HISTORY: 1. Lobectomy. 2. Ovarian surgery. 3. Tonsillectomy. ALLERGIES: CODEINE. MEDICATIONS: List of her inpatient medications was reviewed. Multiple updates were made. FAMILY HISTORY: Noncontributory. SOCIAL HISTORY: Negative for alcohol, tobacco, or illicit drug use. She quit smoking in 1994. Prior to that, logged greater than 40 pack-year history. There was no report of alcohol use. REVIEW OF SYSTEMS: Cannot be obtained as the patient is currently nonresponsive. PHYSICAL EXAMINATION: VITAL SIGNS: Afebrile, pulse 79, blood pressure 162/77, respirations 21, saturation 98% on 40% FiO2 and a PEEP of5. GENERAL: The patient is intubated. She is on absolutely no sedation. She is nonresponsive. HEENT: Normocephalic and atraumatic. Sclerae are white. Conjunctivae are pink. Oral mucosa is moist without lesions. LUNGS: Good air entry with a prolonged expiratory phase. Wheezing and crackles are both appreciated. HEART: Normal rate, regular. ABDOMEN: Soft, nontender, nondistended. Bowel sounds are positive. MUSCULOSKELETAL: No cyanosis or clubbing. There is no pitting in the bilateral lower extremities. NEUROLOGIC: Pupils are fixed. She has agonal respirations. She does not have a cough, or a gag. She does not withdraw from noxious stimuli in all 4 extremities. LABORATORY DATA: WBC 19.6, hemoglobin 10.0, platelets 151. Band count is 18% on top of 28% neutrophils. INR 1.3. A pH 7.24, pCO2 32, PO2 163. Lactate 13.2, troponin 0.6. Creatinine 1.50, slightly worse than baseline. Basic metabolic profile is unremarkable. AST and ALT are elevated. Alkaline phosphatase is also elevated. Urinalysis is positive for pyuria. IMAGIN. CT brain demonstrates no evidence of acute intracranial abnormality. 2. Chest x-ray demonstrates paxton-opacification of the left thorax. She likely has pleural and parenchymal disease present. There is a right-sided upper lobe pulmonary nodule. There is significant volume loss on the left, causing a shift of the mediastinum in that direction. Endotracheal tube is roughly 4 to 5 cm above the lorin. Enteric catheter courses midline, and into the expected region of the stomach. Pacer pads overlie the chest. Infiltrate cannot be excluded on the left. ASSESSMENT: 1. Acute hypoxic and hypercapnic respiratory failure. 2. Chronic obstructive pulmonary disease with acute exacerbation. 3. Cardiopulmonary arrest, prolonged. 4. Anoxic brain injury, suspected. 5. Acute kidney injury. 6. Shock liver. 7. Multisystem organ dysfunction. DISCUSSION AND PLAN: At this point, it appears the patient has suffered a devastating neurologic injury. She does not have a lot of electrolyte abnormalities that would keep her completely unresponsive. We will give her 24-48 hours to see how she evolves clinically. If her mentation does not improve, she will likely have a neurologic injury that she will not be able to make a recovery from. is expected during this hospital stay. I will introduce a dose of steroids, nebulized medications, as well as antibiotics directed at COPD exacerbation. Multiple adjustments have been made to the ventilator in order to improve our minute volume. Pulmonary/Critical Care will continue to follow along in this location. CRITICAL CARE TIME: 30 minutes. Job ID: [id number]
--- NOTE | 2019-01-18 23:44 | HP ---
CHIEF COMPLAINT: Cardiac arrest. HISTORY OF PRESENT ILLNESS: This patient is a 73-year-old female with an unfortunate history of several cancers including a prior gastric cancer and lung cancer. She had a left lower lobectomy in 2007, subsequently has been following at [facility]. The patient was most recently here at this facility in June, at which time, she had a non-STEMI and was seen by Dr. Alcantar and had some stents placed. She was found on followup at [facility] to have recurrence of her lung cancer. Apparently, it was in her left lung, metastasized to her left neck area and to her right femur. She received chemotherapy and radiation treatments to the left neck and right femur. Once she finished the chemotherapy, she was started on immunotherapy and that transitioned occurred just over a month ago. Subsequently, however, PET scan showed persistent cancer in the left lung and therefore, the patient was referred from the [facility] branch at [place] to [facility] in order to determine if she may qualify for some type of experimental trial. The patient was supposed to go there today for that followup and to get a biopsy of the left lung lesion tomorrow. However, once the patient had been up for about 15 minutes this morning, she had an episode in which she apparently felt dizzy and called out her for help. He got her into a wheelchair and she subsequently went unconscious and did not regain consciousness. Her called for an ambulance and when they arrived, apparently the patient was apneic and in cardiac arrest. She had CPR performed and had return of circulation and brought to the emergency department. She is intubated. She was profoundly hypotensive requiring pressors, which are starting to have some effect along with aggressive fluid resuscitation. The patient is not able to give any history. She is intubated. Her states that she was actually feeling pretty well as recently as yesterday and did note that her blood pressure was a little low yesterday in the 90s systolic, but she did not feel poorly at all. REVIEW OF SYSTEMS: Unobtainable given the patient's current mental status. PAST MEDICAL HISTORY: As noted above significant for recurrent stage IV lung cancer, COPD, asthma; history of lymphoma, presumably gastric lymphoma; ovarian cancer, coronary artery disease, atrial fibrillation. PAST SURGICAL HISTORY: Left lower lobectomy and oophorectomy. SOCIAL HISTORY: The patient is a nondrinker, nondrug user. No current smoking. She was a former smoker. FAMILY HISTORY: Brother with esophageal cancer. CURRENT MEDICATIONS: Not fully known at the moment. The patient's will be bringing them, but it was clear that she has been on Eliquis. ALLERGIES: CODEINE. PHYSICAL EXAMINATION: VITAL SIGNS: Pulse 79, BP 162/77. GENERAL APPEARANCE: The patient is intubated. She has no volitional activity. She does have some reflexive attempts at taking a breath in spite of being on the ventilator couple of times per minute. HEENT: Pupils are fairly midpoint and fixed. She has oral ET tube. NECK: Supple and symmetric. HEART: Currently sounds regular without significant murmurs. LUNGS: Scattered rales in both lung peter, more so on the left. ABDOMEN: Soft, nondistended. Positive bowel sounds, but diminished. No palpable masses. EXTREMITIES: No significant edema. LABORATORY DATA: White count is 19.6, hemoglobin 10.0, platelets 151. She has 28% segs, 18% bands, 51% lymphocytes. PT 16.3, INR 1.3. ABG; pH 7.08, pCO2 52, pO2 89.8, bicarbonate is 15, sodium 143, potassium 4.9, chloride 106, CO2 is 18, BUN 23, creatinine 1.5, GFR 34, glucose 245. Lactic acid 13.2. AST 433, ALT 319. Troponin 0.059, subsequent 0.615. BNP 94. Albumin 2.3. Urinalysis shows greater than 50 white cells, 11 to 20 red cells, leukocyte esterase is negative, nitrites negative. CT of brain, no CT evidence for acute process. Chest x-ray shows lines and tubes as detailed, interstitial prominence which may signify interstitial edema and chronic findings consistent with prior malignancy, specifically with a right upper lobe lesion measuring 1.7 cm. IMPRESSION AND PLAN: 1. Cardiac arrest. The etiology is unknown at this point and appears as though she may have had fairly arrhythmia given that she was otherwise awake and fine for about 15 minutes before the onset of this and per the patient's , they have had some antecedent dizziness. It is also possible the patient could have had a significant cerebral infarct that has not shown on the CT as of yet. Sepsis is also another possibility. The patient will be admitted to the ICU. Pulmonary/ Critical Care has been notified. She has been intubated and remained so. She has been on pressors and blood pressure has now responded, so the pressors can be weaned off. 2. Possible sepsis. Unclear. If this is sepsis, the patient certainly has an elevated white blood cell count, some evidence of possible urinary tract infection as a source. Left upper lobe could represent pneumonitis as well. We will continue with broad-spectrum antibiotics and follow up the lactic acid. 3. Elevated troponin consistent with [id number] elevation myocardial infarction type 2 due to severe hypoxia and generalized ischemia from cardiac arrest as well as chest compressions. Cardiology has been consulted. No other acute interventions other than maximizing ventilatory support. 4. Elevated liver enzymes. The patient's liver enzymes have been normal in the past, although it is unclear if she might have some metastatic disease in the liver. The suggestion from a more recent PET scan would be that she does not and this is related to an ischemic and hypotensive injury i.e. shock liver. We will continue to monitor. 5. Chronic kidney disease stage 3B. Creatinine is consistent with her usual baseline. 6. History of atrial fibrillation. The patient is on Eliquis. We will not give any prophylactic anticoagulation for the moment. We will see how she responds. May need followup imaging and certainly she should be anticoagulated for the next couple of days. If she remains viable at that time, we will add some Lovenox avoiding SCDs until we can assure that her blood pressure is going to remain firm. 7. History of coronary artery disease, stable. Dr. Alcantar to follow. 8. History of hyperlipidemia, working on getting her medications find out. 9. Apparent history of hypothyroidism. She was on thyroid supplementation previously. We will check her medication once available. Time spent in critical care was 50 min. Job ID: [id number] [facility]
[2019-01-19] MEDS: methylPREDNISolone Sod Succ 40 MG VIAL IVP SCH ×2 (00:07→06:15)
[2019-01-19] MEDS: Sodium Chloride 0.9% 1,000 ML IV SCH (00:10)
[2019-01-19] MEDS: Piperacillin/Tazobactam 3.375 GM in Sodium Chloride 0.9% 100 ML IVPB SCH ×2 (02:10→11:11)
[2019-01-19 06:45] LABS: Hemoglobin 11.4 g/dL (12.0-16.0); Mean Corpuscular Hemoglobin 33.2 pg (27.0-31.0); Mean Platelet Volume 9.1 fL (7.4-10.4); Platelet Count 240 thou/uL (130-400); RBC Distribution Width 13.6 % (11.5-14.5); Red Blood Cell (RBC) Count 3.43 mill/uL (4.20-5.40); White Blood Cell (WBC) Count 11.5 thou/uL (4.8-10.8)
[2019-01-19 07:17] LABS: ALT (SGPT) 300 U/L (8-55); AST (SGOT) 498 U/L (5-34); Albumin 2.3 g/dL (3.4-4.8); Alkaline Phosphatase 176 U/L (40-110); Anion Gap 22 mmol/L (10-20); BUN (Urea Nitrogen) 30 mg/dL (9.8-20.1); Bilirubin, Total 0.7 mg/dL (0.2-1.2); Calc. Creatinine Clearance 24 mL/min (70-130); Calcium 8.2 mg/dL (7.8-10.44); Carbon Dioxide 13 mmol/L (23-31); Chloride 116 mmol/L (98-107); Estimated GFR-MDRD 28; Globulin 2.2 g/dL (2.4-3.5); Glucose 146 mg/dL (83-110); Potassium 3.6 mmol/L (3.5-5.1); Protein, Total 4.5 g/dL (6.0-8.3); Sodium 147 mmol/L (136-145)
[2019-01-19 07:27] LABS: Actual Bicarbonate (HCO3a) 12.9 mEq/L (22-28); Hemoglobin (Hb) 12.8 g/dL (12.0-16.0); O2 Tension (PaO2) 121.9 mmHg (> 70.0); pH, Arterial 7.34 (7.35-7.45)
[2019-01-19 07:28] LABS: CO2 Tension 24.4 mmHg (35.0-45.0); Puncture Site RF
[2019-01-19 07:31] LABS: Band 32 % (5-11); Lymphocytes 23 % (21-51); MDiff Complete? YES; Monocytes 3 % (0-10); Neutrophil 40 % (42-75); RBC Morphology Normal; Reactive Lymphocytes 2 % (0-10)
[2019-01-19 07:44] VITALS: TEMP 99.4
[2019-01-19] MEDS ORDERED: Pantoprazole 40 MG VIAL IVP SCH (09:00)
--- NOTE | 2019-01-19 09:35 | PRG ---
DATE OF SERVICE: 01/19/2019 SUBJECTIVE: The patient continues to have very occasional agonal breath, otherwise no evidence of any spontaneous neurological activity. OBJECTIVE: VITAL SIGNS: Blood pressure 60/33, pulse 112, respirations 19, O2 saturation 100%. GENERAL APPEARANCE: Age appropriate female, intubated, not sedated. HEENT: Pupils are midpoint, fixed. She has no pupillary reflex. She is intubated with oral ET tube. HEART: Regular. Tachycardic. No murmurs. LUNGS: Actually with less rales than noted yesterday with fair air exchange. ABDOMEN: Soft. Nondistended. Diminished bowel sounds. EXTREMITIES: No significant edema. NEUROLOGICAL: Again, the patient has no reflex of behavior including absent corneal reflex. She has nonreactive pupils. She is not spontaneously breathing other than an occasional agonal breath. LABORATORY DATA: White count 11.5, hemoglobin 11.4, platelets 240. ABG; 7.34 pH, pCO2 is 24.4, pO2 is 121, and bicarb is 13. Chemistry; sodium 147, potassium 3.6, anion gap is 22, BUN 30, creatinine is 1.8, glucose 146. AST 498, ALT is 300, alkaline phosphatase 160. Troponin up to 1.13. Albumin 2.3. IMPRESSION AND PLAN: 1. Severe anoxic brain injury. The patient appears to have suffered what looks like a fatal anoxic brain injury with no evidence of significant neurologic function now other than an occasional agonal breath. She is also experiencing other organ failure. 2. Liver failure, likely due to hypotensive and hypoxic injury of the liver. 3. Acute renal insufficiency. GFR is declining, again, secondary to anoxic hypotensive event. 4. Type 2 [id number] myocardial infarction, secondary to hypoxia and hypotension. 5. Metastatic stage IV lung cancer, which is recurrent and status post chemotherapy, radiation to metastatic lesions, and immunotherapy. The patient was supposed to go to [facility] yesterday to see if she would qualify for any type of experimental trials because that is where she is in this course of her treatment. 6. Disposition. Unfortunately, the patient is now very hypotensive in spite of aggressive pressors and fluid resuscitation. She is experiencing multiorgan failure and appears to have a severe anoxic brain injury. At this point, our efforts seem to be maximized. Discussed the case with Pulmonary Critical Care. Unfortunately, we have a very few options left to support this patient. The patient's family is notified about 2 hours ago that the situation was declining and they were en route. They have not arrived as of this moment. Job ID: [id number] MTDD
[2019-01-19] MEDS ORDERED: Sodium Chloride 0.9% 1,000 ML IV SCH (09:45)
[2019-01-19 09:56] VITALS: BP 40/24
--- NOTE | 2019-01-19 10:08 | PRG ---
DATE OF SERVICE: 01/19/2019 SERVICE: Pulmonary Medicine. INTERVAL HISTORY: The patient is doing very poorly from a cardiovascular standpoint. She cannot provide any additional elements of the history. Overnight, we have titrated up pressors. Her mentation is very poor. She has one agonal respiration every 15 seconds. Otherwise, neurologically, she is doing absolutely nothing. Much of her electrolyte derangements have improved dramatically. That being said, she is still completely unresponsive. PHYSICAL EXAMINATION: VITAL SIGNS: Afebrile, pulse 111, blood pressure 60/33, respirations 19, saturation 100%, currently on 50% FiO2 with a PEEP of 5. GENERAL: The patient is intubated. She is requiring absolutely no sedation. HEENT: Normocephalic and atraumatic. Sclerae white. Conjunctivae pink. Oral mucosa is moist without lesions. LUNGS: Decent air entry. There is a slightly prolonged expiratory phase, but this is much improved. No wheezing or crackles are appreciated. Rhonchi are present but minimal. HEART: Normal rate and regular. ABDOMEN: Soft, nontender, nondistended. Bowel sounds are positive. MUSCULOSKELETAL: No cyanosis or clubbing. There is no pitting in the bilateral lower extremities. NEUROLOGIC: Pupils are fixed. They are nonresponsive with light. She has one agonal respiration infrequently. She has no cough, or gag. She does not withdraw from noxious stimuli in all 4 upper or lower extremities. Her corneal reflexes are absent. ASSESSMENT: 1. Acute hypoxic and hypercapnic respiratory failure. 2. Chronic obstructive pulmonary disease with acute exacerbation. 3. Cardiopulmonary arrest, prolonged. 4. Anoxic brain injury, severe. 5. Acute kidney injury. 6. Shock liver. 7. Multi-system organ dysfunction. DISCUSSION AND PLAN: The patient likely suffered an injury to her brain that she is not going to recover from. She has actually gotten significantly worse from a hemodynamic standpoint over the last 12 hours. She is very likely to code within the next 12 hours. We will continue talking to the family about goals of care moving forward. At this point, I do believe that further chest compressions would be absolutely futile. Much of her metabolic derangement has improved and there is absolutely no reason the patient is not more awake other than to say that she has severe anoxic injury to the brain. Critical Care will continue to follow but hopefully will be able to transition over to comfort care at some point today. CRITICAL CARE TIME: 30 minutes. Job ID: [id number]
[2019-01-19] MEDS ORDERED: Morphine 2 MG/ML SYRINGE SLOW IVP PRN (10:55)
[2019-01-19] MEDS ORDERED: Lorazepam 2 MG/ML VIAL SLOW IVP PRN (10:56)
[2019-01-19] MEDS ORDERED: EPINEPHrine 1 MG, Admixture Fee 1 EACH in Dextrose 5% in Water 250 ML IVPB SCH (12:00)
--- NOTE | 2019-01-20 14:47 | DIS ---
DATE OF ADMISSION: 01/18/2019 DATE OF DISCHARGE: 01/19/2019 DISCHARGE DIAGNOSES: 1. Severe anoxic brain injury. 2. Acute hypoxic and hypercapnic respiratory failure. 3. Metastatic lung cancer. 4. Acute kidney injury. 5. Shock liver. 6. Chronic obstructive pulmonary disease. 7. 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 8. History of ovarian cancer. 9. Hypothyroidism. 10. Hyperlipidemia. 11. History of atrial fibrillation. 12. Chronic kidney disease, stage 3. HISTORY OF PRESENT ILLNESS: This patient is a 73-year-old female with a history of ovarian cancer, history of non-Hodgkin's lymphoma of the stomach and a history of lung cancer, who initially had a left lower lobectomy around 2007. The patient had been following at [facility] in [place]. She had discovery of a recurrence of the lung cancer on the left with metastases to the neck and the right femur. She has been undergoing chemotherapy and radiation therapy to the neck and femur lesions. Recent PET scan reveals resolution of the lesions other than the left lung. The patient was to follow up at [facility] on the day of admission in order to have followup appointment and get a biopsy the following day of the recurrence in the left lung. The patient got up that morning and within about 15 minutes, she called to her for help. She apparently was profoundly dizzy and lightheaded. He got her in a wheelchair and she subsequently went unconscious and never regained consciousness. He called for ambulance. However, it was 15-20 minutes prior to their arrival during which time the patient remained apneic. The patient was intubated and brought to the emergency department. However, her initial evaluation appeared that the patient did not have significant neurological function. Her only spontaneous movements were an agonal breath a couple of times per minute. The patient had received cardiopulmonary resuscitation throughout transport, but did have recovery of spontaneous circulation. The patient had some initial hypotension, required pressors in the emergency department along with fluid resuscitation. She did ultimately recover a blood pressure and she was noted to have white count of 19.6 with 18% bands. Lactic acid was 13.2. Liver enzymes were elevated. BUN was 23, creatinine was 1.5. ABG revealed a pH of 7.08, pCO2 of 52, and PO2 of 89.8 on the ventilator. Bicarb was 15. HOSPITAL COURSE: The patient was admitted to the ICU for acute cardiopulmonary arrest with apparent severe anoxic brain injury. I had a long discussion with the patient's family and made them aware of the severity of the injury to the brain and the poor prognosis. However, we wanted to give it a bit of time to clear the acidosis as much as possible and reassess. The patient was seen in consultation by Dr. Frias of the Pulmonary Critical Care Service, who had similar concerns. The patient was maintained overnight. However, she had decline in her hemodynamics and labs indicated multiorgan failure including kidneys, liver, and elevated troponins. The family ultimately made a decision not to pursue any further aggressive interventions and were made aware that the patient's condition was dire. She did subsequently lose blood pressure and pulse and was declared at 12:20 p.m. on 01/19/2019. Family was present and no autopsy was requested or obtained. Time spent in discharge activities was 35 min. Job ID: [id number] MTDD
--- NOTE | 2019-01-21 05:49 | PQF ---
KEVIN LONDONO DAVID R MD [id number] CLINICAL DOCUMENTATION CLARIFICATION FORM: POST DISCHARGE Addendum to original discharge summary date: ____ Late entry note date: __ DATE: 01/21/2019 ATTN: SYDNEE DE DIOS MD Please exercise your independent, professional judgment in responding to the clarification form. Clinical indicators are provided on the bottom of this form for your review Please check appropriate box(s) to clarify if the following diagnosis has been ruled in or ruled out: SEPSIS [ ] Ruled in diagnosis [ ] Continue to treat [ ] Resolved [ ] Ruled out diagnosis [ ] Cannot rule out diagnosis [ ] Other diagnosis [ x ] Unable to determine For continuity of documentation, please document condition throughout progress notes and discharge summary. Thank You. CLINICAL INDICATORS - SIGNS / SYMPTOMS / LABS - Possible sepsis unclear- H&P, 01/18, SYDNEE DE DIOS MD - Sepsis is also another possibility-H&P, 01/18, SYDNEE DE DIOS MD - WBC: 19.6H-H&P, 01/18, SYDNEE DE DIOS MD - Shock liver--Progress note, 01/19, Altagracia Gonzalez MD - Multiorgan dysfunction--Progress note, 01/19, Altagracia Gonzalez MD RISK FACTORS - Cardiac arrest-H&P, 01/18, SYDNEE DE DIOS MD - Acute hypoxic and hypercapnic respiratory failure-Progress note, 01/19, Altagracia Gonzalez MD TREATMENTS - Zosyn.IV-MAR, 01/18 (This form is maintained as a part of the permanent medical record) 2014 [employer]. All Rights Reserved Gonsalo Alvarez [not provided] [not provided] MTDD
--- NOTE | 2019-01-25 23:08 | PQF ---
KEVIN LONDONO DAVID R MD [id number] CLINICAL DOCUMENTATION CLARIFICATION FORM: POST DISCHARGE Addendum to original discharge summary date: ____ Late entry note date: __ DATE: 01/25/2019 ATTN:SYDNEE DE DIOS MD Please exercise your independent, professional judgment in responding to the clarification form. Clinical indicators are provided on the bottom of this form for your review Please check appropriate box(s) to determine sequence of events: [ ] Cardio respiratory arrest due to Anoxic brain injury [ ] Cardio respiratory arrest due to Acute hypoxic and hypercapnic respiratory failure [ x ] Cardio respiratory arrest unspecified cause [ ] Other diagnosis [ ] Unable to determine For continuity of documentation, please document condition throughout progress notes and discharge summary. Thank You. CLINICAL INDICATORS - SIGNS / SYMPTOMS / LABS - Severe anoxic brain injury-DS, 01/19, SYDNEE DE DIOS MD - Acute hypoxic and hypercapnic respiratory failure- DS, 01/19, SYDNEE DE DIOS MD - Acute cardiopulmonary arrest with apparent severe anoxic brain injury-DS, , SYDNEE DE DIOS MD - some initial hypotension-DS, 01/19, SYDNEE DE DIOS MD - Shock liver-DS, 01/19, SYDNEE DE DIOS MD RISKS: - Hx of large cell non-Hodgkin lymphoma of the stomach-DS, 01/19, SYDNEE DE DIOS MD - Metastatic lung cancer-DS, 01/19, SYDNEE DE DIOS MD TREATMENT: - CPR-DS, 01/19, SYDNEE DE DIOS MD - Adrenalin.IV- APR, 01/18 - [employer]eb- 01/18 (This form is maintained as a part of the permanent medical record) 2014 [employer]. All Rights Reserved Gonsalo Alvarez [not provided] [not provided] MTDD
== END 2019-01-19 15:10 | disposition expired ==
LOC: ERS 12:18 → CCU 16:29
PROVIDERS: ADMIT Internal Medicine; ATTEND Internal Medicine
PROC: 5A12012 Performance of Cardiac Output, Single, Manual (ICD-10-PCS; principal; 2019-01-18)
DX: I46.9 Cardiac arrest, cause unspecified (principal); I21.A1 Myocardial infarction type 2; J96.21 Acute and chronic respiratory failure with hypoxia; K72.00 Acute and subacute hepatic failure without coma; G93.1 Anoxic brain damage, not elsewhere classified; E87.2 Acidosis; C34.90 Malignant neoplasm of unspecified part of unspecified bronchus or lung; C16.9 Malignant neoplasm of stomach, unspecified; C85.90 Non-Hodgkin lymphoma, unspecified, unspecified site; C56.9 Malignant neoplasm of unspecified ovary; J44.1 Chronic obstructive pulmonary disease with (acute) exacerbation; N17.9 Acute kidney failure, unspecified; R41.82 Altered mental status, unspecified; I25.10 Atherosclerotic heart disease of native coronary artery without angina pectoris; I48.91 Unspecified atrial fibrillation; N18.3 Chronic kidney disease, stage 3 (moderate); E03.9 Hypothyroidism, unspecified; E78.5 Hyperlipidemia, unspecified; D72.829 Elevated white blood cell count, unspecified; I25.2 Old myocardial infarction; Z95.5 Presence of coronary angioplasty implant and graft; Z79.01 Long term (current) use of anticoagulants; Z87.891 Personal history of nicotine dependence; Z99.3 Dependence on wheelchair
CPT/HCPCS: 36415; 36416; 70450; 71045; 80053; 81001; 82553; 82805; 83605; 83880; 84484; 85025; 85610; 85730; 93005; 94002; 94003; 94640; J0171; J2543; J2920; J3370; J3490; J7050; J7070; J7620